=== PATIENT | female | born 1935 | race Caucasian/White ===

== ENCOUNTER 2017-01-09 11:09 | Inpatient (IN) | payer OTHER ==
[~2017-01-09] VITALS: Ht 162.6 cm; Wt 86.8 kg
[2017-01-09 12:11] LABS: BASO % 0.1 %; BASO ABS # 0.01 K/uL (0-0.2); EOS % 2.7 %; HEMATOCRIT 24.3 % (37-47); IG% 0.1 %; LYMPH % 35.6 %; MEAN CELL VOLUME 89.3 fL (80-100); MEAN CORPUSCULAR HEMOGLOBIN 27.6 pg (25-34); MEAN CORPUSCULAR HGB CONC 30.9 g/dl (32-36); MEAN PLATELET VOLUME 9.3 fL (7.4-10.4); MONO % 5.1 %; NEUT % 56.4 %; PLATELET COUNT 423 K/uL (130-400); RED BLOOD COUNT 2.72 M/uL (4.2-5.4); WHITE BLOOD COUNT 7.03 K/uL (4.8-10.8)
[2017-01-09] MEDS ORDERED: AMLO-110 PO (12:13)
[2017-01-09] MEDS ORDERED: SITA100T3 PO (12:13)
[2017-01-09] MEDS ORDERED: LISI-787 PO (12:13)
[2017-01-09] MEDS ORDERED: PIOG1TAB20 PO (12:13)
[2017-01-09] MEDS ORDERED: ERGO500037 PO (12:13)
[2017-01-09 12:24] LABS: BUN/CREATININE RATIO 17.3 (10-20); CALCIUM 9.7 mg/dl (8.5-10.1); CREATININE 1.9 mg/dl (0.60-1.20); POTASSIUM 3.5 mmol/L (3.5-5.1)
--- NOTE | 2017-01-09 13:01 | DIAGNOSTIC IMAGING REPORT ---
HEAD WITHOUT CONTRAST (CT) CLINICAL HISTORY: 81 years-old Female presenting with cva, slurred speech. TECHNIQUE: Multidetector CT imaging of the head was performed without the use of intravenous contrast. IV contrast: None. A dose lowering technique was used consistent with the principles of ALARA (as low as reasonably achievable). COMPARISON: None. CT DOSE (mGy.cm): The estimated cumulative dose is 537.48 mGy.cm. FINDINGS: Polisher Implant topogram: Unremarkable. Ventricles and sulci normal in size. Periventricular and subcortical white matter hypoattenuation, nonspecific but likely indicative of chronic small vessel ischemic change. Evidence of bilateral basal ganglia old lacunar infarcts. No mass effect or midline shift. No hemorrhage or acute territorial infarct. No extra-axial fluid collection. Paranasal sinuses and mastoid air cells clear. Calvarium intact. IMPRESSION: 1. No acute intracranial pathology. 2. Chronic small vessel ischemic change and bilateral basal ganglia old lacunar infarcts. Electronically signed by: Ignacio Read M.D. 01/09/2017 12:59 PM Dictated Date/Time: 01/09/2017 12:57 PM
[2017-01-09 13:41] LABS: COMPLETE YES; POLYCHROMASIA 1+
[2017-01-09] MEDS ORDERED: SODIUM CHLORIDE 0.9% 1000ML 1,000 ML IV STA (14:31)
[2017-01-09 14:33] VITALS: Ht 162.6 cm; Wt 86.8 kg
[2017-01-09] MEDS ORDERED: PNEUMOCOCCAL ADMINISTRATION CHARGE ONE (15:00)
[2017-01-09] MEDS ORDERED: PNEUMOCOCCAL POLYSACCHARIDES 25 MCG/0.5 ML VIAL/SYR IM. ONE (15:00)
[2017-01-09] MEDS ORDERED: RANITIDINE IV 50 MG in DEXTROSE 5% 100ML 100 ML IV SCH (15:15)
[2017-01-09] MEDS ORDERED: DEXTROSE 50% 50 ML SYR IV PRN (15:15)
[2017-01-09] MEDS ORDERED: GLUCAGON FOR INJ 1 MG VIAL SQ PRN (15:15)
[2017-01-09] MEDS ORDERED: GLUCOSE 40% GEL 15 GM TUBE PO PRN (15:15)
[2017-01-09] MEDS ORDERED: GLUCOSE 10 TABS/TUBE PO PRN (15:15)
--- NOTE | 2017-01-09 15:46 | History and Physical ---
History & Physical Date & Time of Service: Jan 09, 2017 at 15:42 Chief Complaint: Slurred Speech Primary Care Physician: No Doctor, Assigned History of Present Illness Source: patient, family (Georgiana Thomason, daughter, ) 81 year old F currently resident of [facility] and visiting in [place] when having new onset slurred speech that was witnessed by daughter Georgiana Thomason [phone] in the car with daughter reporting the episode lasted for around 30 minutes and resolved before patient arrived to the emergency room. Patient has PMH of HTN on oral antihypertensives at home and oral antihyperglycemic medications as prescribed by her doctor in [place], Dr. Canchola, , . However patient did not take her medications before arriving to the ED and was found to have blood pressure systolic above 180. Patient reports that typically she is consistent with taking her medications, but sometimes her systolic blood pressure can be over 200. She reports good diabetes control and reports her last known HbA1c to be less than 6. Patient only had a small snack in the AM before episode of slurred speech. Her glucose measured in the ED was 161 and not hypoglycemic. Head CT did not show evidence of new infarct. Patient is not likely able to get MRI of head because of history of metal hip. As per ED physician, Dr. Calderon, there guaiac positive blood on rectal exam. Patient reports that she is aware of history of anemia and has in the past been on iron supplements but not recently with last colonoscopy positive for a polyp but was unremarkable test and that she will be due for colonoscopy soon. Patient does not report of seeing blood in stool and reports weight gain. Other pertinent lab findings include creatinine of 1.8 with GFR estimated below 30 however it is unclear whether this is acute or chronic. Past Medical/Surgical History Medical Problems: (1) Anemia Status: Chronic (2) Diabetes Status: Chronic (3) Slurred speech Status: Resolved Family History Stroke MOTHER GRANDMOTHER Social History Smoking Status: Never Smoker Smokeless Tobacco Use: No Alcohol Use: none Drug Use: none Occupational Status: retired Allergies Coded Allergies: Sulfa Antibiotics (Unverified Allergy, Unknown, ., 01/09/17) Home Medications Scheduled Amlodipine (Norvasc), 5 MG PO DAILY Ergocalciferol (Vitamin D 87579 Unit), 50,000 UNIT PO WK Lisinopril/Hctz (Zestoretic 20MG/12.5MG), 1 TAB PO DAILY Pioglitazone Hcl (Pioglitazone Hcl), 45 MG PO DAILY Sitagliptin Phosphate (Januvia), 100 MG PO DAILY Review of Systems Constitutional: No fever Eyes: No worsening of vision ENT: No sore throat, No trouble swallowing Respiratory: No cough, No shortness of breath, No dyspnea at rest Cardiovascular: No chest pain, No edema, No palpitations Abdomen: No pain Genitourinary - Female: No dysuria Neurologic: No memory loss, No paralysis, No numbness/tingling, No vertigo Psychiatric: No substance abuse Endocrine: No fatigue Hematologic / Lymphatic: No abnormal bleeding/bruising Integumentary: No rash Physical Exam Vital Signs Date Time Temp Pulse Resp B/P (MAP) Pulse Ox O2 Delivery O2 Flow Rate FiO2 01/09/17 14:45 81 16 169/66 96 Room Air 01/09/17 14:33 Room Air 01/09/17 13:34 110 01/09/17 12:58 78 15 180/68 98 Room Air 01/09/17 11:36 89 16 184/97 98 Room Air 01/09/17 11:11 36.7 92 16 177/76 98 Room Air General Appearance: no apparent distress, + obese Head: normocephalic, atraumatic Eyes: normal inspection, PERRL, EOMI, sclerae normal ENT: pharynx normal Neck: supple, thyroid normal, no JVD, no carotid bruits, trachea midline Respiratory/Chest: chest non-tender, lungs clear, normal breath sounds, no respiratory distress, no accessory muscle use Cardiovascular: no JVD, no murmur, + tachycardia (100 bpm) Abdomen/GI: normal bowel sounds, non tender, soft Back: normal inspection, no muscle spasm Extremities/Musculoskelatal: normal inspection, no calf tenderness, no pedal edema, normal range of motion Neurologic/Psych: no motor/sensory deficits, alert, oriented x 3 Diagnostics Laboratory Results Results Past 24 Hours Test 01/09/17 11:30 01/09/17 11:37 01/09/17 11:52 01/09/17 15:13 Range/Units White Blood Count 7.03 4.8-10.8 K/uL Red Blood Count 2.72 4.2-5.4 M/uL Hemoglobin 7.5 12.0-16.0 g/dL Hematocrit 24.3 37-47 % Mean Corpuscular Volume 89.3 80-100 fL Mean Corpuscular Hemoglobin 27.6 25-34 pg Mean Corpuscular Hemoglobin Concent 30.9 32-36 g/dl Platelet Count 423 130-400 K/uL Mean Platelet Volume 9.3 7.4-10.4 fL Neutrophils (%) (Auto) 56.4 % Lymphocytes (%) (Auto) 35.6 % Monocytes (%) (Auto) 5.1 % Eosinophils (%) (Auto) 2.7 % Basophils (%) (Auto) 0.1 % Neutrophils # (Auto) 3.96 1.4-6.5 K/uL Lymphocytes # (Auto) 2.50 1.2-3.4 K/uL Monocytes # (Auto) 0.36 0.11-0.59 K/uL Eosinophils # (Auto) 0.19 0-0.5 K/uL Basophils # (Auto) 0.01 0-0.2 K/uL RDW Standard Deviation 53.8 36.4-46.3 fL RDW Coefficient of Variation 16.4 11.5-14.5 % Immature Granulocyte % (Auto) 0.1 % Immature Granulocyte # (Auto) 0.01 0.00-0.02 K/uL Polychromasia 1+ Sodium Level 141 136-145 mmol/L Potassium Level 3.5 3.5-5.1 mmol/L Chloride Level 106 98-107 mmol/L Carbon Dioxide Level 27 21-32 mmol/L Anion Gap 8.0 3-11 mmol/L Blood Urea Nitrogen 33 7-18 mg/dl Creatinine 1.90 0.60-1.20 mg/dl Est Creatinine Clear Calc Drug Dose 26.0 ml/min Estimated GFR () 28.6 Estimated GFR (Non- 24.6 BUN/Creatinine Ratio 17.3 10-20 Random Glucose 158 70-99 mg/dl Calcium Level 9.7 8.5-10.1 mg/dl Total Bilirubin 0.3 0.2-1 mg/dl Aspartate Amino Transf (AST/SGOT) 9 15-37 U/L Alanine Aminotransferase (ALT/SGPT) 13 12-78 U/L Alkaline Phosphatase 80 45-117 U/L Total Protein 7.5 6.4-8.2 gm/dl Albumin 3.7 3.4-5.0 gm/dl Globulin 3.8 2.5-4.0 gm/dl Albumin/Globulin Ratio 1.0 0.9-2 Bedside Prothrombin Time INR 1.1 0.9-1.1 Bedside Glucose 161 70-90 mg/dl Diagnostic Radiology HEAD WITHOUT CONTRAST (CT) FINDINGS: Citrix Consultant topogram: Unremarkable. Ventricles and sulci normal in size. Periventricular and subcortical white matter hypoattenuation, nonspecific but likely indicative of chronic small vessel ischemic change. Evidence of bilateral basal ganglia old lacunar infarcts. No mass effect or midline shift. No hemorrhage or acute territorial infarct. No extra-axial fluid collection. Paranasal sinuses and mastoid air cells clear. Calvarium intact. IMPRESSION: 1. No acute intracranial pathology. 2. Chronic small vessel ischemic change and bilateral basal ganglia old lacunar EKG 77 beats per minute in normal sinus rhythm No prior EKG available Impression Assessment and Plan 81 year old F currently resident of [facility] and visiting in [place] when having new onset slurred speech that was witnessed by daughter Georgiana Thomason [phone] in the car with daughter reporting the episode lasted for around 30 minutes and resolved before patient arrived to the emergency room. CT head negative for acute pathology but patient may have had a transient ischemic attack and was found to be have elevated blood pressure with systolic BP above 180. Also seen to be tachycardic between 100 to 105 beats per minute and concern for arrhythmia. ED evaluation also concerning for whether patient has GI bleed. Admit to telemetry for cardiac and neurological monitoring and trend CBC. Also for trending renal function and obtain medical records from her primary care doctor in [place] Dr. Canchola to see whether above mentioned lab abnormalities are acute or chronic. Slurred speech -TIA vs Hypertensive Emergency vs Arrhythmia vs Hypoglycemia -cardiac monitoring on telemetry, neuro checks, fingerstick glucose, blood pressure control with antihypertensives (restart home blood pressure medications ) -carotid doppler, 2D echo -patient out of window period for TPA, aspirin 324 mg ordered x 1 to prevent stroke recurrence Diabetes -hold oral antihyperglycemics for now -start aspart insulin as per fingerstick glucose levels -check HbA1c Anemia -ordered, iron studies, and retic count -positive guaiac as per ED admission, will start pantoprazole IV in case of true GI bleed -stop pantoprazole if CBC remains stable -SCD sleeves for now for DVT prophylaxis FERNANDO vs CKD -monitor renal labs -send urinalysis Obtain medical records -doctor in [place], Dr. Canchola, , Level of Care Telemetry Advanced Directives Existing Living Will: Yes Existing Power of Criminal Investigator: No Resuscitation Status FULL RESUSCITATION VTE Prophylaxis VTE Risk Assessment Done? Y/N: Yes Risk Level: Moderate Given or contraindicated: SCD's
[2017-01-09] MEDS ORDERED: ASPIRIN 81 MG CHEW PO STA (15:51)
[2017-01-09 15:57] LABS: MAGNESIUM 2.2 mg/dl (1.8-2.4)
[2017-01-09 16:00] VITALS: BP 172/76; PULSE 82; TEMP 36.8; O2SAT 95
[2017-01-09] MEDS ORDERED: RANITIDINE IV 50 MG in DEXTROSE 5% 100ML 100 ML IV ONE (16:30)
--- NOTE | 2017-01-09 17:17 | EMERGENCY ROOM VISIT NOTE ---
History Report prepared by Scribe: Minor Arita Under the Supervision of: Dr. Marshall Calderon D.O. First contact with patient: 11:52 Chief Complaint: STROKE SYMPTOMS Stated Complaint: SLURRED SPEECH History of Present Illness The patient is a 81 year old female who presents to the Emergency Room with complaints of resolved slurred speech beginning shortly prior to arrival. The patient has a lisp at baseline. Per daughter, the patient's speech sounds a little off, but sounds significantly better than before. The patient states that she was driving in a car when she suddenly began slurring her speech. Her daughter states "she just sounded drunk". She states that the patient's speech slur improved en route to the hospital, and was resolved upon arrival. The patient denies any chest pain, visual changes, SOB, nausea, vomiting, weakness, fatigue, or diarrhea. She notes that she has been anemic recently, and has been taking iron. She has a history of diabetes. The patient states that she felt a "slight tremor" throughout her face while her symptoms were present. She is not on any blood thinners. Source of History: patient, family (daughter) Onset: Shortly prior to arrival Quality: other (speech slur) Timing: resolved Associated Symptoms: No chest pain, No SOB, No nausea, No vomiting, No diarrhea, No fatigue, No weakness Note: Additional symptoms: a "slight tremor" throughout her face while her symptoms were present. Review of Systems See HPI for pertinent positives & negatives. A total of 10 systems reviewed and were otherwise negative. Past Medical & Surgical Medical Problems: (1) Anemia (2) Diabetes (3) Slurred speech Family History No pertinent family history stated. Social History Smoking Status: Never Smoker Occupation Status: retired Current/Historical Medications Scheduled Amlodipine (Norvasc), 5 MG PO DAILY Ergocalciferol (Vitamin D 60287 Unit), 50,000 UNIT PO WK Lisinopril/Hctz (Zestoretic 20MG/12.5MG), 1 TAB PO DAILY Pioglitazone Hcl (Pioglitazone Hcl), 45 MG PO DAILY Sitagliptin Phosphate (Januvia), 100 MG PO DAILY Allergies Coded Allergies: Sulfa Antibiotics (Unverified Allergy, Unknown, ., 01/09/17) Physical Exam Vital Signs Date Time Temp Pulse Resp B/P (MAP) Pulse Ox O2 Delivery O2 Flow Rate FiO2 01/09/17 14:45 81 16 169/66 96 Room Air 01/09/17 14:33 Room Air 01/09/17 13:34 110 01/09/17 12:58 78 15 180/68 98 Room Air 01/09/17 11:36 89 16 184/97 98 Room Air 01/09/17 11:11 36.7 92 16 177/76 98 Room Air Physical Exam GENERAL: Sitting up in bed, alert, well appearing, well nourished, no distress, non-toxic EYE EXAM: normal conjunctiva, PERRL and EOM's intact OROPHARYNX: no exudate, no erythema, lips, buccal mucosa, and tongue normal and mucous membranes are moist NECK: supple, no nuchal rigidity, no adenopathy, non-tender LUNGS: Clear to auscultation. Normal chest wall mechanics HEART: no murmurs, S1 normal and S2 normal ABDOMEN: abdomen soft, non-tender, normo-active bowel sounds, no masses, no rebound or guarding. BACK: Back is symmetrical on inspection and there is no deformity, no midline tenderness, no CVA tenderness. SKIN: no rashes and no bruising UPPER EXTREMITIES: upper extremities are grossly normal. LOWER EXTREMITIES: No pitting edema. NEURO EXAM: Normal sensorium, cranial nerves II-XII intact, slurred speech (at baseline per family), no weakness of arms, no weakness of legs. No drift. Finger to nose intact. Gross sensation intact. RECTAL: Heme positive Medical Decision & Procedures ER Provider Diagnostic Interpretation: CT:Per my review, radiologist interpretation. HEAD WITHOUT CONTRAST (CT) FINDINGS: Meat Cutter Apprentice topogram: Unremarkable. Ventricles and sulci normal in size. Periventricular and subcortical white matter hypoattenuation, nonspecific but likely indicative of chronic small vessel ischemic change. Evidence of bilateral basal ganglia old lacunar infarcts. No mass effect or midline shift. No hemorrhage or acute territorial infarct. No extra-axial fluid collection. Paranasal sinuses and mastoid air cells clear. Calvarium intact. IMPRESSION: 1. No acute intracranial pathology. 2. Chronic small vessel ischemic change and bilateral basal ganglia old lacunar infarcts. Electronically signed by: Ignacio Read M.D. Laboratory Results 01/09/17 11:30 Red Blood Count 2.72, Mean Corpuscular Volume 89.3, Mean Corpuscular Hemoglobin 27.6, Mean Corpuscular Hemoglobin Concent 30.9, Mean Platelet Volume 9.3, Neutrophils (%) (Auto) 56.4, Lymphocytes (%) (Auto) 35.6, Monocytes (%) (Auto) 5.1, Eosinophils (%) (Auto) 2.7, Basophils (%) (Auto) 0.1, Neutrophils # (Auto) 3.96, Lymphocytes # (Auto) 2.50, Monocytes # (Auto) 0.36, Eosinophils # (Auto) 0.19, Basophils # (Auto) 0.01 01/09/17 11:30 Test 01/09/17 11:30 01/09/17 11:37 White Blood Count 7.03 K/uL (4.8-10.8) Red Blood Count 2.72 M/uL (4.2-5.4) Hemoglobin 7.5 g/dL (12.0-16.0) Hematocrit 24.3 % (37-47) Mean Corpuscular Volume 89.3 fL (80-100) Mean Corpuscular Hemoglobin 27.6 pg (25-34) Mean Corpuscular Hemoglobin Concent 30.9 g/dl (32-36) Platelet Count 423 K/uL (130-400) Mean Platelet Volume 9.3 fL (7.4-10.4) Neutrophils (%) (Auto) 56.4 % Lymphocytes (%) (Auto) 35.6 % Monocytes (%) (Auto) 5.1 % Eosinophils (%) (Auto) 2.7 % Basophils (%) (Auto) 0.1 % Neutrophils # (Auto) 3.96 K/uL (1.4-6.5) Lymphocytes # (Auto) 2.50 K/uL (1.2-3.4) Monocytes # (Auto) 0.36 K/uL (0.11-0.59) Eosinophils # (Auto) 0.19 K/uL (0-0.5) Basophils # (Auto) 0.01 K/uL (0-0.2) RDW Standard Deviation 53.8 fL (36.4-46.3) RDW Coefficient of Variation 16.4 % (11.5-14.5) Immature Granulocyte % (Auto) 0.1 % Immature Granulocyte # (Auto) 0.01 K/uL (0.00-0.02) Nucleated RBC Absolute Count (auto) 0.00 K/uL (0-0) Nucleated Red Blood Cells % 0.0 % Polychromasia 1+ Absolute Reticulocyte Count 0.06 10^6/uL (0.02-0.10) Percent Reticulocyte Count 2.1 % (0.5-2.0) Anion Gap 8.0 mmol/L (3-11) Est Creatinine Clear Calc Drug Dose 26.0 ml/min Estimated GFR () 28.6 Estimated GFR (Non- 24.6 BUN/Creatinine Ratio 17.3 (10-20) Calcium Level 9.7 mg/dl (8.5-10.1) Magnesium Level 2.2 mg/dl (1.8-2.4) Iron Level 25 mcg/dl (35-150) Total Iron Binding Capacity 387 mcg/dl (250-450) Total Bilirubin 0.3 mg/dl (0.2-1) Aspartate Amino Transf (AST/SGOT) 9 U/L (15-37) Alanine Aminotransferase (ALT/SGPT) 13 U/L (12-78) Alkaline Phosphatase 80 U/L (45-117) Total Protein 7.5 gm/dl (6.4-8.2) Albumin 3.7 gm/dl (3.4-5.0) Globulin 3.8 gm/dl (2.5-4.0) Albumin/Globulin Ratio 1.0 (0.9-2) Bedside Prothrombin Time INR 1.1 (0.9-1.1) Laboratory results per my review. Medications Administered Medications (Trade) Dose Ordered Sig/Ariella Route Start Time Stop Time Status Last Admin Dose Admin Sodium Chloride 1,000 ml @ 999 mls/hr Q1H1M STAT IV 01/09/17 14:31 01/09/17 15:31 DC 01/09/17 14:45 999 MLS/HR ECG Indication: other (neurologic symptoms) Rate (beats per minute): 77 Rhythm: sinus rhythm Findings: Q waves (Inferior), no ectopy ED Course ED COURSE: Vital signs were reviewed and showed hypertension The patients medical record was reviewed The above diagnostic studies were performed and reviewed. ED treatments and interventions as stated above. 1157: The patient was evaluated in room A9B. A complete history and physical examination was performed. 1345: Upon reevaluation, the patient is resting comfortably. I discussed my findings with the patient and she understands and agrees with the treatment plan. Based on the patients age, coexisting illnesses, exam and lab findings the decision to treat as an inpatient was made. The patient remained stable while under my care. The patient will be evaluated for further management. Medical Decision Differential Diagnosis includes but is not limited to ischemic Stroke, hemorrhagic stroke, bells palsy, mass, neoplasm, migraine headache, seizure, subarachnoid hemorrhage, TIA, and transient global amnesia. Patient is a 81-year-old female who presents the ER following sudden onset of slurred speech. This resolved prior to arrival. On exam she completely neurologically intact with exception of mild slurred speech which family and patient note is baseline for her. She is a history of anemia with a previous transfusion but is unaware of her typical hemoglobin. Hematoma today 7.5 with heme positive stool. BMP shows a creatinine of 1.9. CT head was unremarkable. Patient was updated regards to findings and she is admitted to internal medicine for TIA along with anemia and GI bleed. Medication Reconcilliation Current Medication List: was personally reviewed by me Blood Pressure Screening Patient's blood pressure: Elevated blood pressure Blood pressure disposition: Referred to PCP Consults Time Called: 1332 Consulting Physician: Dr. Nate Gilmore Returned Call: 134 I reviewed the patient's case with Dr. Sullivan. Nazario will evaluate the patient for further management. Impression Primary Impression: TIA (transient ischemic attack) Additional Impressions: Symptomatic anemia Slurred speech Anemia Scribe Attestation The scribe's documentation has been prepared under my direction and personally reviewed by me in its entirety. I confirm that the note above accurately reflects all work, treatment, procedures, and medical decision making performed by me. Departure Information Dispostion Being Evaluated By Hospitalist Patient Instructions My [facility] Problem Qualifiers Primary Impression: TIA (transient ischemic attack) Transient cerebral ischemia type: unspecified Qualified Codes: G45.9 - Transient cerebral ischemic attack, unspecified Additional Impressions: Anemia Anemia type: unspecified type Qualified Codes: D64.9 - Anemia, unspecified
[2017-01-09 17:20] VITALS: BP 157/64; PULSE 76
[2017-01-09 18:22] LABS: HEMATOCRIT 24.4 % (37-47); MEAN CELL VOLUME 90.7 fL (80-100); MEAN CORPUSCULAR HGB CONC 28.7 g/dl (32-36); MEAN PLATELET VOLUME 8.9 fL (7.4-10.4); PLATELET COUNT 358 K/uL (130-400); RED BLOOD COUNT 2.69 M/uL (4.2-5.4); WHITE BLOOD COUNT 6.29 K/uL (4.8-10.8)
--- NOTE | 2017-01-09 20:11 | DIAGNOSTIC IMAGING REPORT ---
CAROTID ARTERY ULTRASOUND CLINICAL HISTORY: Slurred speech. COMPARISON STUDY: None. TECHNIQUE: Real-time, grayscale, and color Doppler sonography of the carotid and vertebral arteries was performed. Images were viewed in the transverse and longitudinal planes. FINDINGS: There is mild to moderate atherosclerotic plaque. Velocity measurements are listed below. COMMON CAROTID PEAK SYSTOLIC VELOCITY (CM/S): RIGHT 118 LEFT 111 ICA PEAK SYSTOLIC VELOCITY (CM/S): RIGHT 87 LEFT 109 The systolic ratios between the internal to common carotid arteries are normal. Antegrade flow is seen in the vertebral arteries. The external carotid arteries are patent. Blood pressure in the right arm measured 170/73. Blood pressure in the left arm measured 161/77. IMPRESSION: 1. No evidence of a hemodynamically significant stenosis. 2. Elevated blood pressure, as above. Electronically signed by: Jameel Hanson M.D. 01/09/2017 8:09 PM Dictated Date/Time: 01/09/2017 8:08 PM
[2017-01-09 20:48] VITALS: BP 161/67; PULSE 78; TEMP 36.7; O2SAT 93
[2017-01-09] MEDS: INSULIN ASPART 100 UNITS/ML 3 ML PEN SC SCH (21:00)
[2017-01-09 23:43] VITALS: BP 134/75; PULSE 87; TEMP 36.7; O2SAT 95
[2017-01-10] VITALS (20 sets, daily range): BP systolic 142–183; BP diastolic 70–96; PULSE 67–89; TEMP 36.5–36.9; O2SAT 90–98
[2017-01-10 00:43] LABS: HEMATOCRIT 21.9 % (37-47)
[2017-01-10] MEDS: INSULIN ASPART 100 UNITS/ML 3 ML PEN SC SCH ×4 (06:30→20:11)
--- NOTE | 2017-01-10 08:05 | DIAGNOSTIC IMAGING REPORT ---
HEAD CT NONCONTRAST CT DOSE: 537.48 mGy.cm HISTORY: Increased weakness right leg, right facial droop, slurred speech TECHNIQUE: Multiaxial CT images of the head were performed without the use of intravenous contrast. Automated exposure control was utilized for this study. A dose lowering technique was utilized adhering to the principles of ALARA. Comparison: Head CT 01/09/2017. Findings: The paranasal sinuses and mastoid air cells are clear. The calvarium and skull base are intact. There is no mass, hematoma, midline shift, acute infarct. White matter hypodensity is nonspecific but suggestive of moderate microvascular ischemic change. The ventricles and sulci demonstrate mild age-related involutional changes. Old bilateral basal ganglia and thalamic lacunar infarcts are again noted. Impression: No significant change compared to the prior study. No acute intracranial abnormality. Electronically signed by: Ulices Alonzo M.D. 01/10/2017 8:03 AM Dictated Date/Time: 01/10/2017 7:48 AM
[2017-01-10] MEDS ORDERED: ALTEPLASE, RECOMBINANT INJ 7.8 MG in SYRINGE 0 ML IV SCH (08:29)
[2017-01-10] MEDS ORDERED: ALTEPLASE IV SCH (08:30)
[2017-01-10] MEDS ORDERED: SET 2260-0500 IV ONE (08:30)
[2017-01-10] MEDS ORDERED: CLOPIDOGREL BISULFATE 75 MG TAB PO ONE (08:30)
[2017-01-10] MEDS ORDERED: RECOMBINANT IV SCH (08:30)
[2017-01-10] MEDS ORDERED: PANTOprazole INJ 80 MG in DEXTROSE 5% 100ML IV SCH (08:30)
--- NOTE | 2017-01-10 08:36 | Clinical Documentation Query ---
CLINICAL DOCUMENTATION QUERY 81 year old female who presents to the Emergency Room with complaints of resolved slurred speech Query #1/2 In your clinical opinion is this patient being managed for: ( ) GI bleed evidenced by +rectal exam and anemia treated with PRBC's, GI consult, and IV protonix. ( ) Not Agree ( ) Other explanation of clinical findings (Please Explain) Possible GI bleed evidenced by +rectal exam and anemia treated with PRBC's, GI consult, and IV protonix. ( ) Unable to determine (Please Define) ( ) Need to Discuss The medical record reflects the following clinical findings, treatment, and risk factors. Clinical Indicators: Worsening anemia, Hgb 6.7, Hct 21.9, + guaiac on ED rectal exam. Treatment: 2 units of PRBC's, IV Protonix gtt, FOCB, GI consult Risk Factors: Age, +rectal guaiac on rectal exam, worsening anemia. Query #2/2 In your clinical opinion is this patient being managed for: (X ) Acute blood loss anemia in setting of suspected GI bleed treated with 2 units of PRBC's ( ) Not Agree ( ) Other explanation of clinical findings (Please Explain) ( ) Unable to determine (Please Define) ( ) Need to Discuss The medical record reflects the following clinical findings, treatment, and risk factors. Clinical Indicators: Worsening anemia, Hgb 6.7, Hct 21.9 Treatment: 2 units of PRBC's Risk Factors: Age, ?GIB, Please clarify and document your clinical opinion in the progress notes and discharge summary. Terms such as "probable", "suspected", "likely", "questionable", "possible", or "still to be ruled out" are acceptable. IF IN AGREEMENT, YOU MUST DOCUMENT ABOVE DIAGNOSTIC STATEMENT IN DAILY PROGRESS NOTES AND DISCHARGE SUMMARY. This document is not part of the patient's record. Thank You, Guanakito Mejia, GUY [phone]
[2017-01-10 08:42] LABS: PARTIAL THROMBOPLASTIN RATIO 0.9; PROTHROMBIN TIME (PATIENT) 10.9 SECONDS (9.0-12.0)
[2017-01-10] MEDS ORDERED: ATORVASTATIN 40 MG TAB PO ONE (08:44)
[2017-01-10 08:45] LABS: ESTIMATED AVERAGE GLUCOSE 140 mg/dl; HA1C FLAG Normal (Normal)
[2017-01-10] MEDS ORDERED: PHARMACIST DISCHARGE MED REC CONSULT PRN (08:45)
[2017-01-10] MEDS ORDERED: PANTOprazole INJ 40 MG in DEXTROSE 5% 100ML IV SCH (08:45)
[2017-01-10] MEDS ORDERED: LABETALOL HCL IV 5 MG/ML 20ML IV PRN (08:45)
[2017-01-10 08:55] LABS: BUN/CREATININE RATIO 16.3 (10-20); CALCIUM 9.9 mg/dl (8.5-10.1); CREATININE 1.2 mg/dl (0.60-1.20); PHOSPHORUS 2.8 mg/dl (2.5-4.9); POTASSIUM 3.4 mmol/L (3.5-5.1)
[2017-01-10] MEDS ORDERED: LISINOPRIL/HCTZ 20/12.5MG TAB PO SCH (09:00)
[2017-01-10] MEDS ORDERED: ATORVASTATIN 40 MG TAB PO SCH (09:00)
[2017-01-10] MEDS ORDERED: ASPIRIN 81 MG ECTAB PO SCH (09:00)
[2017-01-10] MEDS ORDERED: D5W AND NSS 1,000 ML IV SCH (09:00)
[2017-01-10] MEDS ORDERED: RANITIDINE IV 50 MG in DEXTROSE 5% 100ML 100 ML IV SCH (09:00)
[2017-01-10] MEDS ORDERED: AMLODIPINE BESYLATE 5 MG TAB PO SCH (09:00)
[2017-01-10 09:02] LABS: BASO % 0.2 %; BASO ABS # 0.01 K/uL (0-0.2); COMPLETE YES; EOS % 3.2 %; HEMATOCRIT 31.5 % (37-47); IG% 0.3 %; LYMPH ABS # 1.56 K/uL (1.2-3.4); MEAN CELL VOLUME 90.8 fL (80-100); MEAN CORPUSCULAR HGB CONC 30.8 g/dl (32-36); MEAN PLATELET VOLUME 8.9 fL (7.4-10.4); MONO % 5.5 %; NEUT % 64.8 %; PLATELET COUNT 356 K/uL (130-400); RED BLOOD COUNT 3.47 M/uL (4.2-5.4)
[2017-01-10] MEDS ORDERED: POTASSIUM CHLORIDE 20 MEQ/15 ML UDC PO ONE (09:15)
--- NOTE | 2017-01-10 09:29 | Progress Note ---
Medicine Progress Note Date & Time of Visit: Jan 10, 2017 at 09:02. 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 and basal ganglia, chronic small vessel ischemic change reassessed patient while in ICU, feels the same, no changes in symptoms denies chest pain, dyspnea, palpitations, dizziness, nausea/vomiting no other symptoms Objective Last 8 Hrs Date Time Temp Pulse Resp B/P (MAP) Pulse Ox O2 Delivery O2 Flow Rate FiO2 01/10/17 07:55 Room Air 01/10/17 07:35 76 18 183/91 (121) 96 Room Air 01/10/17 07:25 68 18 180/84 (116) 97 Room Air 01/10/17 07:02 36.9 69 18 161/82 (108) 93 Room Air 01/10/17 06:00 36.7 88 16 143/76 92 01/10/17 05:30 36.9 67 16 144/96 94 01/10/17 05:00 36.9 72 18 166/84 96 01/10/17 04:45 36.8 76 18 157/81 94 01/10/17 04:28 36.7 85 20 161/83 97 01/10/17 04:00 Room Air 01/10/17 03:35 36.7 80 18 149/70 90 01/10/17 03:05 36.9 80 18 148/76 91 01/10/17 02:35 36.6 80 16 146/78 91 01/10/17 02:20 36.8 77 18 158/76 94 01/10/17 02:05 36.8 87 20 164/78 94 Physical Exam: General- oriented x 3, not in distress, speaks in sentences with no effort Head- atraumatic Eyes- PERRL, EOMI, anicteric ENT- oropharynx clear Neck- supple, no JVD, no adenopathy, no thyromegaly Lungs- clear to auscultation bl Heart- regular rhythm; no murmur, normal rate Abdomen- normal bowel sounds, soft, nontender Extremities- no pretibial edema, no calf tenderness Neuro- alert, oriented x 3; PERRL, EOMI;(+) mild dysartrhia, and right facial droop- mild otherwise CN2-12 grossly intact; motor 5/5 bilaterally; sensation 100% on all ext, finger to nose intact bilaterally Skin- warm & dry Laboratory Results: Last 24 Hours Test 01/09/17 11:30 01/09/17 11:37 01/09/17 11:52 01/09/17 16:08 White Blood Count 7.03 K/uL Red Blood Count 2.72 M/uL Hemoglobin 7.5 g/dL Hematocrit 24.3 % Mean Corpuscular Volume 89.3 fL Mean Corpuscular Hemoglobin 27.6 pg Mean Corpuscular Hemoglobin Concent 30.9 g/dl Platelet Count 423 K/uL Mean Platelet Volume 9.3 fL Neutrophils (%) (Auto) 56.4 % Lymphocytes (%) (Auto) 35.6 % Monocytes (%) (Auto) 5.1 % Eosinophils (%) (Auto) 2.7 % Basophils (%) (Auto) 0.1 % Neutrophils # (Auto) 3.96 K/uL Lymphocytes # (Auto) 2.50 K/uL Monocytes # (Auto) 0.36 K/uL Eosinophils # (Auto) 0.19 K/uL Basophils # (Auto) 0.01 K/uL RDW Standard Deviation 53.8 fL RDW Coefficient of Variation 16.4 % Immature Granulocyte % (Auto) 0.1 % Immature Granulocyte # (Auto) 0.01 K/uL Nucleated RBC Absolute Count (auto) 0.00 K/uL Nucleated Red Blood Cells % 0.0 % Polychromasia 1+ Absolute Reticulocyte Count 0.06 10^6/uL Percent Reticulocyte Count 2.1 % Sodium Level 141 mmol/L Potassium Level 3.5 mmol/L Chloride Level 106 mmol/L Carbon Dioxide Level 27 mmol/L Anion Gap 8.0 mmol/L Blood Urea Nitrogen 33 mg/dl Creatinine 1.90 mg/dl Est Creatinine Clear Calc Drug Dose 26.0 ml/min Estimated GFR () 28.6 Estimated GFR (Non- 24.6 BUN/Creatinine Ratio 17.3 Random Glucose 158 mg/dl Calcium Level 9.7 mg/dl Magnesium Level 2.2 mg/dl Iron Level 25 mcg/dl Total Iron Binding Capacity 387 mcg/dl Total Bilirubin 0.3 mg/dl Aspartate Amino Transf (AST/SGOT) 9 U/L Alanine Aminotransferase (ALT/SGPT) 13 U/L Alkaline Phosphatase 80 U/L Total Protein 7.5 gm/dl Albumin 3.7 gm/dl Globulin 3.8 gm/dl Albumin/Globulin Ratio 1.0 Bedside Prothrombin Time INR 1.1 Bedside Glucose 161 mg/dl 114 mg/dl Test 01/09/17 17:59 01/09/17 21:12 01/10/17 00:13 01/10/17 07:33 White Blood Count 6.29 K/uL Red Blood Count 2.69 M/uL Hemoglobin 7.0 g/dL 6.7 g/dL Hematocrit 24.4 % 21.9 % Mean Corpuscular Volume 90.7 fL Mean Corpuscular Hemoglobin 26.0 pg Mean Corpuscular Hemoglobin Concent 28.7 g/dl RDW Standard Deviation 54.1 fL RDW Coefficient of Variation 16.5 % Platelet Count 358 K/uL Mean Platelet Volume 8.9 fL Bedside Glucose 104 mg/dl 128 mg/dl Test 01/10/17 08:14 01/10/17 08:22 Bedside Glucose 131 mg/dl Prothrombin Time 10.9 SECONDS Prothromb Time International Ratio 1.0 Activated Partial Thromboplast Time 22.7 SECONDS Partial Thromboplastin Ratio 0.9 Sodium Level 141 mmol/L Potassium Level 3.4 mmol/L Chloride Level 105 mmol/L Carbon Dioxide Level 28 mmol/L Anion Gap 8.0 mmol/L Blood Urea Nitrogen 20 mg/dl Creatinine 1.20 mg/dl Est Creatinine Clear Calc Drug Dose 40.7 ml/min Estimated GFR () 49.8 Estimated GFR (Non- 43.0 BUN/Creatinine Ratio 16.3 Random Glucose 141 mg/dl Estimated Average Glucose 140 mg/dl Hemoglobin A1c 6.5 % Calcium Level 9.9 mg/dl Phosphorus Level 2.8 mg/dl Magnesium Level 2.0 mg/dl Total Bilirubin 1.1 mg/dl Direct Bilirubin 0.3 mg/dl Aspartate Amino Transf (AST/SGOT) 15 U/L Alanine Aminotransferase (ALT/SGPT) 13 U/L Alkaline Phosphatase 84 U/L Total Protein 7.5 gm/dl Albumin 3.7 gm/dl Assessment & Plan 81 year old F currently resident of [facility] and visiting in [place] when having new onset slurred speech that was witnessed by daughter Georgiana Thomason [phone] in the car with daughter reporting the episode lasted for around 30 minutes and resolved before patient arrived to the emergency room. History of DM, HTN, Chronic Iron Deficiency Anemia, Colonic Polyp and as per daughter, irregular heartbeat. POSSIBLE TIA EPISODES VS. ACUTE CVA - risk factors: DM, HTN, possible history of a fib old records from PCP in [place] being confirmed - repeat CT head: no acute CVA, old lacunar infarcts, chronic small vessel ischemic changes - telestroke conference with [facility] - Dr. Edwards performed due to mild symptoms- dysarthria and facial droop in the setting of Anemia secondary to possible GI bleed, requiring 2 units pRBC transfusion, TPA NOT recommended at this time - Dr. Edwards recommends CONTINUE aspirin and ADD plavix for now and closely watch for signs of GI bleed check Brain MRI and MRA keep BP systolic 150-170, PRN Labetalol for systolic BP > 170 (hold Amlodipine and Lisinopril/HCTZ for now) - monitor in Tele, echo ordered stroke protocol order set ordered Neuro consulted Possible GI bleed - evidenced by +rectal exam and anemia treated with PRBC's, GI consult, and IV Famotidine - has history of chronic iron deficiency anemia per daughter (records being obtained from PCP in [place]) - positive guaiac in the ER - s/p 2 units pRBC, Hg improved from 6.7 to 9.7 Famotidine IV BID for now (per neuro, no protonix while on plavix) will keep NPO for now except meds, gentle IV fluids GI consulted -- Iron level 25 will need Iron supplement check vit b12 and folate Possible Acute blood loss anemia, Iron Deficiency - in setting of suspected GI bleed - treated with 2 units of PRBC's management as noted above 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 UD PRN PO 01/09/17 15:15 02/08/17 15:14 Glucose (Glucose Chew Tab) 4-8 Tablets 4 Tabl... UD PRN PO 01/09/17 15:15 02/08/17 15:14 Dextrose (Dextrose 50% 50ML Syringe) 25-50ML OF 50% DW IV FOR... UD PRN IV 01/09/17 15:15 02/08/17 15:14 Glucagon (Glucagon Inj) 1 mg UD PRN SQ 01/09/17 15:15 02/08/17 15:14 Insulin Aspart (novoLOG ASPART) SLIDING SCALE If C... ACHS SC 01/09/17 21:00 02/08/17 20:59 Alteplase, Recombinant 70.2 mg/Empty Bag 70.2 ml @ 70.2 mls/hr TODAY@0830 IV 01/10/17 08:30 01/10/17 09:29 Clopidogrel Bisulfate (plAVix TAB) 75 mg NOW ONCE PO 01/10/17 08:30 01/10/17 08:31 UNV Famotidine 20 mg/ Dextrose 102 ml @ 200 mls/hr Q12H IV 01/10/17 10:00 02/09/17 09:59 Labetalol HCl (Normodyne IV) 10 mg Q6H PRN IV 01/10/17 08:45 02/09/17 08:44 Clopidogrel Bisulfate (plAVix TAB) 75 mg QAM PO 01/10/17 09:00 02/09/17 08:59 UNV Aspirin (Ecotrin Tab) 81 mg QAM PO 01/10/17 09:00 02/09/17 08:59 Aspirin (Ecotrin Tab) 81 mg 1500 ONCE PO 01/10/17 15:00 01/10/17 15:01 Atorvastatin Calcium (Lipitor Tab) 40 mg QAM PO 01/10/17 09:00 02/09/17 08:59 Miscellaneous Information (Pharmacist Discharge Med Rec Consult) 1 ea UD PRN N/A 01/10/17 08:45 02/09/17 08:44 Dextrose/Sodium Chloride 1,000 ml @ 50 mls/hr Q20H IV 01/10/17 09:00 02/09/17 08:59
--- NOTE | 2017-01-10 10:06 | DIAGNOSTIC IMAGING REPORT ---
Brain MRA HISTORY: Stroke - Attention to [place] [facility] [place] TECHNIQUE: 3-D [id number] MRA of the brain was performed without contrast. COMPARISON STUDY: None. FINDINGS: Visualized intracranial internal carotid arteries, distal vertebral arteries, and basilar artery are widely patent. There is no significant stenosis, occlusion, or aneurysm seen within the bilateral ACAs and MCAs. Mild to moderate multifocal narrowing within the bilateral chief medical officer. IMPRESSION: Mild to moderate multifocal narrowing within the bilateral chief medical officer. Otherwise, no significant stenosis, occlusion, or aneurysm within the [place] [facility] [place]. Electronically signed by: Ulices Alonzo M.D. 01/10/2017 10:04 AM Dictated Date/Time: 01/10/2017 9:59 AM
--- NOTE | 2017-01-10 10:07 | DIAGNOSTIC IMAGING REPORT ---
BRAIN WITHOUT CONTRAST CLINICAL HISTORY: 81 years-old Female presenting with Stroke, anemia, slurred speech. TECHNIQUE: Multisequence, multiplanar MR imaging of the brain was performed without the use of intravenous contrast. IV contrast: None. COMPARISON: Noncontrast CT head performed the previous day. FINDINGS: Small focus of restricted diffusion in the subcortical white matter of the posterior left frontal region. Extensive periventricular and white matter T2/FLAIR hyperintensity nonspecific but likely chronic small vessel ischemic change. Old lacunar infarcts noted in the right basal ganglia and thalami. Proportional ventricular and sulcal prominence likely age-related parenchymal volume loss. No mass effect or midline shift. No hemorrhage. No extra-axial fluid collection. T2 skull base flow voids preserved. Bone marrow signal intensity within the calvarium within normal limits. IMPRESSION: 1. Small focus of acute ischemia in the subcortical white matter of the posterior left frontal region. This likely represents an acute lacunar infarct versus, less likely, embolic infarct. 2. Multiple old lacunar infarcts and extensive chronic small vessel ischemic change. Electronically signed by: Ignacio Read M.D. 01/10/2017 10:06 AM Dictated Date/Time: 01/10/2017 10:01 AM
[2017-01-10] MEDS: FAMOTIDINE IV INJ 20 MG in DEXTROSE 5% 100ML 100 ML IV SCH ×2 (10:10→20:49)
--- NOTE | 2017-01-10 11:14 | Gastrointestinal Consultation ---
Gastrointestinal Consultation Date of Consultation: Jan 10, 2017 Attending Physician: Redd Bautista Consulting Physician: Michael Mckinney Reason for Consultation: Heme positive stools, anemia History of Present Illness Patient is a 81 year old female w PMHx of DM II, anemia, who is visiting w family from [place], brought to hospital for sudden onset of slurred speech, noticed also to have R facial droop. Stroke protocol started. She had negative CT head, though evidence of possible chronic and new infracts on MRA/MRI. She is currently on bed, having echocardiogram, daughter at bedside. GI consulted as pt was noted to be anemic on admission labs. Hgb was around 7, improved to 9 after 2U PRBC transfusion overnight. She also tested heme positive stools when rectal exam was done in the ED. She has chronic anemia and is on iron supplements prior to admission. She denies any s/s of hematemesis, coffee ground emesis, blood or dark/tarry stools, abd pain, n/v. She had hx of colonoscopy 10-12 yrs ago w findings of benign polyp, due to have repeat screening colonoscopy in [place] at first week of January. Denies any family hx of colorectal ca, IBD. No personal hx of PUD or GI bleeding. Past Medical/Surgical History Medical Problems: (1) Anemia Status: Chronic (2) Symptomatic anemia Status: Acute (3) TIA (transient ischemic attack) Status: Acute Past Medical History: See above Family History Stroke MOTHER GRANDMOTHER Social History Smoking Status: Never Smoker Drug Use: none Occupation Status: retired Allergies Coded Allergies: Sulfa Antibiotics (Unverified Allergy, Unknown, ., 01/09/17) Current Medications Home Meds and Scripts Medications Dose Route/Sig Max Daily Dose Days Date Category Januvia (Sitagliptin Phosphate) 100 Mg Tab 100 Mg PO DAILY 01/09/17 Reported Pioglitazone Hcl 45 Mg Tab 45 Mg PO DAILY 01/09/17 Reported Zestoretic 20MG/12.5MG (HCTZ/Lisinopril) Tab 1 Tab PO DAILY 01/09/17 Reported Norvasc (Amlodipine Besylate) 5 Mg Tab 5 Mg PO DAILY 01/09/17 Reported Vitamin D 04165 Unit (Ergocalciferol) 50,000 Unit Cap 50,000 Unit PO WK 01/09/17 Reported Review of Systems Constitutional: No fever, No chills Respiratory: No shortness of breath Cardiac: No chest pain Abdomen: + see HPI, No pain, No nausea, No vomiting, No GI bleeding Neuro: + see HPI, + problem reported (slurred speech, R facial droop) Physical Exam Date Time Temp Pulse Resp B/P (MAP) Pulse Ox O2 Delivery O2 Flow Rate FiO2 01/10/17 10:00 97 Room Air 01/10/17 08:59 68 18 97 01/10/17 07:55 Room Air 01/10/17 07:35 76 18 183/91 (121) 96 Room Air 01/10/17 07:25 68 18 180/84 (116) 97 Room Air 01/10/17 07:02 36.9 69 18 161/82 (108) 93 Room Air 01/10/17 06:00 36.7 88 16 143/76 92 01/10/17 05:30 36.9 67 16 144/96 94 01/10/17 05:00 36.9 72 18 166/84 96 01/10/17 04:45 36.8 76 18 157/81 94 01/10/17 04:28 36.7 85 20 161/83 97 01/10/17 04:00 Room Air 01/10/17 03:35 36.7 80 18 149/70 90 01/10/17 03:05 36.9 80 18 148/76 91 01/10/17 02:35 36.6 80 16 146/78 91 01/10/17 02:20 36.8 77 18 158/76 94 01/10/17 02:05 36.8 87 20 164/78 94 01/10/17 00:00 Room Air 01/09/17 23:43 36.7 87 16 134/75 (94) 95 Room Air 01/09/17 20:48 36.7 78 18 161/67 (98) 93 Room Air 01/09/17 20:00 Room Air 01/09/17 17:20 76 157/64 (95) 01/09/17 16:00 36.8 82 18 172/76 (108) 95 Room Air 01/09/17 16:00 Room Air 01/09/17 15:44 98 18 162/77 95 01/09/17 14:45 81 16 169/66 96 Room Air 01/09/17 14:33 Room Air 01/09/17 13:34 110 01/09/17 12:58 78 15 180/68 98 Room Air 01/09/17 11:36 89 16 184/97 98 Room Air 01/09/17 11:11 36.7 92 16 177/76 98 Room Air General Appearance: no apparent distress, + obese Eyes: normal inspection, PERRL, EOMI Neck: supple, no JVD, trachea midline Respiratory/Chest: no respiratory distress, no accessory muscle use Abdomen: soft Extremities: no pedal edema Neurologic/Psych: oriented x 3, + pertinent finding (slurred speech, R facial droop) Laboratory Results Last 24 Hours Test 01/09/17 11:30 01/09/17 11:37 01/09/17 11:52 01/09/17 16:08 White Blood Count 7.03 K/uL Red Blood Count 2.72 M/uL Hemoglobin 7.5 g/dL Hematocrit 24.3 % Mean Corpuscular Volume 89.3 fL Mean Corpuscular Hemoglobin 27.6 pg Mean Corpuscular Hemoglobin Concent 30.9 g/dl Platelet Count 423 K/uL Mean Platelet Volume 9.3 fL Neutrophils (%) (Auto) 56.4 % Lymphocytes (%) (Auto) 35.6 % Monocytes (%) (Auto) 5.1 % Eosinophils (%) (Auto) 2.7 % Basophils (%) (Auto) 0.1 % Neutrophils # (Auto) 3.96 K/uL Lymphocytes # (Auto) 2.50 K/uL Monocytes # (Auto) 0.36 K/uL Eosinophils # (Auto) 0.19 K/uL Basophils # (Auto) 0.01 K/uL RDW Standard Deviation 53.8 fL RDW Coefficient of Variation 16.4 % Immature Granulocyte % (Auto) 0.1 % Immature Granulocyte # (Auto) 0.01 K/uL Nucleated RBC Absolute Count (auto) 0.00 K/uL Nucleated Red Blood Cells % 0.0 % Polychromasia 1+ Absolute Reticulocyte Count 0.06 10^6/uL Percent Reticulocyte Count 2.1 % Sodium Level 141 mmol/L Potassium Level 3.5 mmol/L Chloride Level 106 mmol/L Carbon Dioxide Level 27 mmol/L Anion Gap 8.0 mmol/L Blood Urea Nitrogen 33 mg/dl Creatinine 1.90 mg/dl Est Creatinine Clear Calc Drug Dose 26.0 ml/min Estimated GFR () 28.6 Estimated GFR (Non- 24.6 BUN/Creatinine Ratio 17.3 Random Glucose 158 mg/dl Calcium Level 9.7 mg/dl Magnesium Level 2.2 mg/dl Iron Level 25 mcg/dl Total Iron Binding Capacity 387 mcg/dl Total Bilirubin 0.3 mg/dl Aspartate Amino Transf (AST/SGOT) 9 U/L Alanine Aminotransferase (ALT/SGPT) 13 U/L Alkaline Phosphatase 80 U/L Total Protein 7.5 gm/dl Albumin 3.7 gm/dl Globulin 3.8 gm/dl Albumin/Globulin Ratio 1.0 Bedside Prothrombin Time INR 1.1 Bedside Glucose 161 mg/dl 114 mg/dl Test 01/09/17 17:59 01/09/17 21:12 01/10/17 00:13 01/10/17 07:33 White Blood Count 6.29 K/uL Red Blood Count 2.69 M/uL Hemoglobin 7.0 g/dL 6.7 g/dL Hematocrit 24.4 % 21.9 % Mean Corpuscular Volume 90.7 fL Mean Corpuscular Hemoglobin 26.0 pg Mean Corpuscular Hemoglobin Concent 28.7 g/dl RDW Standard Deviation 54.1 fL RDW Coefficient of Variation 16.5 % Platelet Count 358 K/uL Mean Platelet Volume 8.9 fL Bedside Glucose 104 mg/dl 128 mg/dl Test 01/10/17 08:14 01/10/17 08:22 Bedside Glucose 131 mg/dl White Blood Count 6.00 K/uL Red Blood Count 3.47 M/uL Hemoglobin 9.7 g/dL Hematocrit 31.5 % Mean Corpuscular Volume 90.8 fL Mean Corpuscular Hemoglobin 28.0 pg Mean Corpuscular Hemoglobin Concent 30.8 g/dl Platelet Count 356 K/uL Mean Platelet Volume 8.9 fL Neutrophils (%) (Auto) 64.8 % Lymphocytes (%) (Auto) 26.0 % Monocytes (%) (Auto) 5.5 % Eosinophils (%) (Auto) 3.2 % Basophils (%) (Auto) 0.2 % Neutrophils # (Auto) 3.89 K/uL Lymphocytes # (Auto) 1.56 K/uL Monocytes # (Auto) 0.33 K/uL Eosinophils # (Auto) 0.19 K/uL Basophils # (Auto) 0.01 K/uL RDW Standard Deviation 53.0 fL RDW Coefficient of Variation 16.0 % Immature Granulocyte % (Auto) 0.3 % Immature Granulocyte # (Auto) 0.02 K/uL Prothrombin Time 10.9 SECONDS Prothromb Time International Ratio 1.0 Activated Partial Thromboplast Time 22.7 SECONDS Partial Thromboplastin Ratio 0.9 Sodium Level 141 mmol/L Potassium Level 3.4 mmol/L Chloride Level 105 mmol/L Carbon Dioxide Level 28 mmol/L Anion Gap 8.0 mmol/L Blood Urea Nitrogen 20 mg/dl Creatinine 1.20 mg/dl Est Creatinine Clear Calc Drug Dose 40.7 ml/min Estimated GFR () 49.8 Estimated GFR (Non- 43.0 BUN/Creatinine Ratio 16.3 Random Glucose 141 mg/dl Estimated Average Glucose 140 mg/dl Hemoglobin A1c 6.5 % Calcium Level 9.9 mg/dl Phosphorus Level 2.8 mg/dl Magnesium Level 2.0 mg/dl Total Bilirubin 1.1 mg/dl Direct Bilirubin 0.3 mg/dl Aspartate Amino Transf (AST/SGOT) 15 U/L Alanine Aminotransferase (ALT/SGPT) 13 U/L Alkaline Phosphatase 84 U/L Total Protein 7.5 gm/dl Albumin 3.7 gm/dl Impression Patient is a 81 year old female w acute onset of slurred speech, R facial drop. Negative CT but brain MRI suggestive of old & new infracts w ischemic vessels changes as well. She is currently undergoing stroke eval and protocol had been initiated. She has chronic anemia, on iron supplements prior to admission. Admission Hgb around 7, improved to 9 after 2U PRBC transfusion. Rectal exam did reveal positive heme stools though no s/s of leatha GI bleeding. Given possible interaction of PPI w Plavix, Neurology had recommended pt to be on Ranitidine instead for coverage in setting of possible GI bleeding. She had been started on ASA as well for the stroke. Plan - Monitor H/H and transfuse prn - Continue Ranitidine IV - Will follow but no plans for endoscopic evals given stroke and no s/s of leatha GI bleeding. ATTESTATION: I have performed a history and physical examination of gorgea patient and reviewed the electronic record. Specifically, on physical examination there is no sign of active bleeding despite positive hemoccult. In view of patient's plan to return to [place] on discharge, I recommend close follow up with her regular physicians. I have discussed the case with DALTON Vences. The above note reflects my findings, conclusions, and recommendations. Michael Mckinney MD
[2017-01-10 12:28] LABS: BASO % 0.3 %; BASO ABS # 0.02 K/uL (0-0.2); COMPLETE YES; EOS % 1.2 %; HEMATOCRIT 30.8 % (37-47); IG% 0.5 %; LYMPH % 19.4 %; LYMPH ABS # 1.14 K/uL (1.2-3.4); MEAN CELL VOLUME 88.3 fL (80-100); MEAN CORPUSCULAR HEMOGLOBIN 28.1 pg (25-34); MEAN CORPUSCULAR HGB CONC 31.8 g/dl (32-36); MEAN PLATELET VOLUME 9.3 fL (7.4-10.4); MONO % 5.5 %; NEUT % 73.1 %; PLATELET COUNT 351 K/uL (130-400); RED BLOOD COUNT 3.49 M/uL (4.2-5.4); WHITE BLOOD COUNT 5.87 K/uL (4.8-10.8)
--- NOTE | 2017-01-10 12:37 | ECHOCARDIOGRAM REPORT ---
*NOTICE TO RECEIVING CONSTITUTION PARTY AGENCY This information is strictly Confidential and protected under [place] law. [place] law prohibits you from making any further disclosure of this information unless further disclosure is expressly permitted by the written consent of the person to whom it pertains or is authorized by law. A general authorization for the release of medical or other information is not sufficient for this purpose. Hospital accepts no responsibility if the information is made available to any other person, INCLUDING THE PATIENT. Interpretation Summary * Name: AJIT HEATH Study Date: 01/10/2017 10:13 AM BP: 183/91 mmHg * Patient Location: C.2T\S\E216\S\1 HR: 68 * : 1935 (M/d/yyyy) Gender: Female Height: 64 in * Age: 81 yrs Ethnicity: CA Weight: 192 lb * Ordering Physician: Redd Bautista * Referring Physician: Self, Referred * Performed By: Citlali Espinoza RDCS * * Reason For Study: Stroke * BSA: 1.9 m2 * The study was technically limited. * There is no comparison study available. * -- Conclusions -- * Ejection Fraction = 65-70%. * There is mild concentric left ventricular hypertrophy. * Injection of contrast documented no interatrial shunt. * There is moderate mitral annular calcification. Procedure Details * A complete two-dimensional transthoracic echocardiogram was performed (2D, M-mode, Doppler and color flow Doppler). * A saline contrast injection was performed to assess for cardiac shunting. * The injection was performed through an intravenous line in the left arm. * The attending nurse who injected the saline contrast was Jaime Hernandez RN. * A total of 30 cc of agitated saline was given. Left Ventricle * The left ventricle is normal in size. * There is no thrombus. * There is mild concentric left ventricular hypertrophy. * The basal septum is thickened and angulated consistent with sigmoid septum. * Ejection Fraction = 65-70%. * Left ventricular systolic function is normal. * The left ventricular wall motion is normal. Right Ventricle * The right ventricle is normal size. * The right ventricular systolic function is normal as assessed by tricuspid annular plane systolic excursion (TAPSE) (normal >1.5 cm). Atria * The left atrial size is normal. * Right atrial size is normal. * Injection of contrast documented no interatrial shunt. Mitral Valve * There is moderate mitral annular calcification. * There is no mitral valve stenosis. * Significant mitral regurgitation is absent. Tricuspid Valve * The tricuspid valve is not well visualized. * There is no tricuspid stenosis. * Significant tricuspid regurgitation is absent. Aortic Valve * The aortic valve is not well visualized. * Aortic stenosis is absent. * There is no significant aortic regurgitation. Pulmonic Valve * The pulmonary valve is not well seen, but the Doppler examination is normal without significant regurgitation or stenosis. Great Vessels * The aortic root is normal size. Pericardium/Pleural * There is no pericardial effusion. Great Vessels * Normal inferior vena cava diameter and respiratory variation suggests normal central venous pressure. Left Ventricular Diastolic Function * Pulse wave TDI of the anterior and posterior mitral annulas demonstrates normal LV relaxation MMode 2D Measurements and Calculations IVSd 1.2 cm LVIDd 3.2 cm LVIDs 2.2 cm LVPWd 1.3 cm IVS/LVPW 0.97 FS 32.8 % EDV(Teich) 42.3 ml ESV(Teich) 15.8 ml EF(Teich) 62.6 % EDV(cubed) 34.1 ml ESV(cubed) 10.3 ml EF(cubed) 69.7 % LV mass(C)d 130.8 grams LV mass(C)dI 68.0 grams/m\S\2 SV(Teich) 26.5 ml SI(Teich) 13.8 ml/m\S\2 SV(cubed) 23.7 ml SI(cubed) 12.4 ml/m\S\2 Ao root diam 2.8 cm Ao root area 6.0 cm\S\2 ACS 1.3 cm LA dimension 2.4 cm asc Aorta Diam 2.3 cm LA/Ao 0.87 LVOT diam 2.0 cm LVOT area 3.0 cm\S\2 LVAd ap4 22.8 cm\S\2 LVLd ap4 7.3 cm EDV(MOD-sp4) 57.8 ml EDV(sp4-el) 60.5 ml LVAs ap4 11.2 cm\S\2 LVLs ap4 5.5 cm ESV(MOD-sp4) 18.3 ml ESV(sp4-el) 19.2 ml EF(MOD-sp4) 68.4 % EF(sp4-el) 68.2 % LVAd ap2 15.5 cm\S\2 LVLd ap2 7.3 cm EDV(MOD-sp2) 27.2 ml EDV(sp2-el) 28.1 ml LVAs ap2 8.0 cm\S\2 LVLs ap2 5.7 cm ESV(MOD-sp2) 9.4 ml ESV(sp2-el) 9.6 ml EF(MOD-sp2) 65.3 % EF(sp2-el) 65.8 % LVLd %diff 0.17 % EDV(MOD-bp) 39.5 ml LVLs %diff 3.8 % ESV(MOD-bp) 13.3 ml EF(MOD-bp) 66.4 % SV(MOD-sp4) 39.6 ml SI(MOD-sp4) 20.6 ml/m\S\2 SV(MOD-sp2) 17.7 ml SI(MOD-sp2) 9.2 ml/m\S\2 SV(MOD-bp) 26.2 ml SI(MOD-bp) 13.6 ml/m\S\2 SV(sp4-el) 41.3 ml SI(sp4-el) 21.5 ml/m\S\2 SV(sp2-el) 18.5 ml SI(sp2-el) 9.6 ml/m\S\2 Doppler Measurements and Calculations MV E max varun 105.7 cm/sec MV A max varun 140.2 cm/sec MV E/A 0.75 MV dec time 0.30 sec Ao V2 max 158.9 cm/sec Ao max PG 10.1 mmHg Ao max PG (full) 4.4 mmHg JUAN ANTONIO(V,A) 2.3 cm\S\2 JUAN ANTONIO(V,D) 2.3 cm\S\2 LV V1 max PG 5.7 mmHg LV V1 max 119.4 cm/sec PA V2 max 123.6 cm/sec PA max PG 6.1 mmHg PA acc slope 302.8 cm/sec\S\2 PA acc time 0.19 sec TR max varun 103.0 cm/sec PA pr(Accel) -4.33 mmHg
[2017-01-10 12:49] LABS: BUN/CREATININE RATIO 14.7 (10-20); CALCIUM 9.9 mg/dl (8.5-10.1); CREATININE 1.2 mg/dl (0.60-1.20)
[2017-01-10] MEDS ORDERED: ASPIRIN 81 MG ECTAB PO ONE (15:00)
[2017-01-10 16:35] LABS: HEMATOCRIT 30.5 % (37-47)
[2017-01-10] MEDS ORDERED: NURSING VERBAL MED ORDER ONE (16:45)
--- NOTE | 2017-01-10 17:02 | CONSULTATION REPORT ---
DATE OF CONSULTATION: 01/10/2017 FOR: Dr. Bautista. HISTORY OF PRESENT ILLNESS: Desiree is 81 years old with no assigned physician and is a resident of [facility] was visiting her relatives in [place] and developed a new onset of slurred speech, witnessed by her daughter and for which she was brought to the Emergency Room. The episode lasted about 30 minutes, resolved before she arrived and it was felt that she simply needed admission for evaluation and observation. PAST MEDICAL HISTORY: Reveals hypertension, on oral antihypertensives at home and oral antihyperglycemic medications, prescribed by her physician in [place], Dr. Thomson. She apparently did not take her medications and when she arrived in the Emergency Room, her blood pressure was over 200 systolic. Her diabetes controlled, apparently has been good with a hemoglobin A1c less than 6. ____ some guaiac positive stools on rectal examination and apparently she does have a history of anemia in the past and it is not clear whether this is going to be worked up. Her last colonoscopy apparently did show a polyp and she is due for repeat evaluation, when she returns to [place]. PAST MEDICAL HISTORY: Therefore, contains anemia, diabetes and the acute episode of slurred speech last night which unfortunately recurred this morning and has persisted ever since and is associated now with some right upper motor neuron facial paresis and clumsiness of the right arm without any significant involvement of the leg and with some subjective numbness. This resulted in a stroke alert, but at that point in light of the chronicity of her symptoms, it was felt that TPA was not indicated. 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 She has been placed on aspirin and Plavix and is going to be followed carefully for GI bleeding in light of her Hematest-positive stool on her chronic anemia. FAMILY HISTORY: Reveals her mother and grandmother both had strokes. SOCIAL HISTORY: Reveals her to be a never smoker. She does not consume ethanol. She is retired. ALLERGIES: INCLUDE SULFA. SCHEDULED MEDICATIONS AT HOME: Include amlodipine, vitamin D, lisinopril/hydrochlorothiazide, pioglitazone and Januvia. REVIEW OF SYSTEMS: Reveals reasonably good recent health. No fever, sweats, chills. No new issues referable to head, eyes, ears, nose and throat, cardiovascular, pulmonary, gastrointestinal, genitourinary systems. Other than the chronic anemia, this causation has never been established. Neurologically, she denies any prior cerebrovascular events, any history consistent with neuropathy. No cognitive impairment, no headaches, etc. PHYSICAL EXAMINATION: VITAL SIGNS: Her blood pressure yesterday was 169/66, pulse was 81, respirations were 16. Initial systolic blood pressure was over 200. She was a well-developed, well-nourished. No abnormalities were noted on examination of head, eyes, ears, nose and throat, cardiovascular/pulmonary/abdomen or extremities. NEUROLOGIC: Today neurologically, she is awake, alert, oriented. She has no word-finding deficits. She can, repeat, identify objects but has clear articulatory disturbances, right upper motor neuron facial paresis, mild to moderate in severity, some slight redundant sensation subjectively to light touch over the right side of her face, normal extraocular movements, normal visual eugene, a slight drift to the right upper extremity, mild clumsiness or rapid repetitive motions of the right arm, normal reflexes with the exception of absent ankle jerks, downgoing toes, trace positive Thomson on the right, normal strength and no abnormal involuntary movements in the form of choreiform activity, tics or tremors. IMPRESSION AND PLAN: I think this woman has had intracranial small vessel cortical event, which presented initially with transient ischemic attack-like affair yesterday then cleared and now has reemerged with a fixed deficit. I agree with the use of both aspirin and Plavix as this would be the choice for intracranial disease. We certainly have no evidence for cardiac arrhythmia to date. There is no evidence for a cardiogenic source of emboli and Coumadin in this setting certainly has a higher risk and no superiority to combined dual antiplatelet therapy. I will check back with her tomorrow, but for now I do not have any other further neurologic suggestions. IRIS
[2017-01-11 03:16] VITALS: BP 170/84; PULSE 86; TEMP 36.6; O2SAT 98
[2017-01-11] MEDS: INSULIN ASPART 100 UNITS/ML 3 ML PEN SC SCH ×3 (07:00→16:15)
[2017-01-11 07:13] LABS: BASO % 0.4 %; BASO ABS # 0.02 K/uL (0-0.2); COMPLETE YES; EOS % 4.5 %; HEMATOCRIT 31.6 % (37-47); IG% 0.2 %; LYMPH % 31.8 %; LYMPH ABS # 1.75 K/uL (1.2-3.4); MEAN CELL VOLUME 90.8 fL (80-100); MEAN CORPUSCULAR HEMOGLOBIN 27.3 pg (25-34); MEAN CORPUSCULAR HGB CONC 30.1 g/dl (32-36); MEAN PLATELET VOLUME 8.9 fL (7.4-10.4); NEUT % 55.1 %; PLATELET COUNT 357 K/uL (130-400); RED BLOOD COUNT 3.48 M/uL (4.2-5.4); WHITE BLOOD COUNT 5.51 K/uL (4.8-10.8)
[2017-01-11 07:45] LABS: BUN/CREATININE RATIO 14.5 (10-20); CALCIUM 9.9 mg/dl (8.5-10.1); CREATININE 1.5 mg/dl (0.60-1.20); POTASSIUM 3.7 mmol/L (3.5-5.1)
[2017-01-11 07:48] LABS: CHOLESTEROL/HDL RATIO 3.1
[2017-01-11 08:00] VITALS: BP 174/89; PULSE 79; TEMP 37; O2SAT 96; O2SAT 97
[2017-01-11] MEDS ORDERED: CLOPIDOGREL BISULFATE 75 MG TAB PO SCH ×2 (09:00→18:45)
[2017-01-11] MEDS ORDERED: AMLODIPINE BESYLATE 5 MG TAB PO ONE (10:00)
[2017-01-11] MEDS ORDERED: SODIUM CHLORIDE 0.9% 1000ML 1,000 ML IV SCH (10:00)
[2017-01-11] MEDS: FAMOTIDINE IV INJ 20 MG in DEXTROSE 5% 100ML 100 ML IV SCH (10:12)
--- NOTE | 2017-01-11 10:27 | Gastroenterology Progress Note ---
Progress Note Date of Service: Jan 11, 2017 Subjective Pt evaluation today including: conversation w/ patient, conversation w/ family , physical exam, chart review, lab review, review of inpatient medication list Pt's speech is a bit more clear today, not as slurred. Still w R facial droop. H /H stable around 9 after 2U PRBC transfusion. She had a BM yesterday which was brown in color, denies any dark tarry stools or rectal bleeding. Had solid for breakfast, denies any n/v, abd pain. Review of Systems Constitutional: No fever, No chills Respiratory: No cough, No shortness of breath Cardiac: No chest pain Abdomen: No pain, No nausea, No vomiting, No GI bleeding Neuro: + problem reported (TIA symptoms on admission w slurred speech, R facial gtt. ) Medications Current Inpatient Medications Medications (Trade) Dose Ordered Sig/Ariella Route Start Time Stop Time Status Last Admin Dose Admin Glucose (Glucose 40% Gel) 15-30 GRAMS 15 GRAMS... UD PRN PO 01/09/17 15:15 02/08/17 15:14 Glucose (Glucose Chew Tab) 4-8 Tablets 4 Tabl... UD PRN PO 01/09/17 15:15 02/08/17 15:14 Dextrose (Dextrose 50% 50ML Syringe) 25-50ML OF 50% DW IV FOR... UD PRN IV 01/09/17 15:15 02/08/17 15:14 Glucagon (Glucagon Inj) 1 mg UD PRN SQ 01/09/17 15:15 02/08/17 15:14 Insulin Aspart (novoLOG ASPART) SLIDING SCALE If C... ACHS SC 01/09/17 21:00 02/08/17 20:59 Famotidine 20 mg/ Dextrose 102 ml @ 200 mls/hr Q12H IV 01/10/17 10:00 02/09/17 09:59 01/11/17 10:12 200 MLS/HR Labetalol HCl (Normodyne IV) 10 mg Q6H PRN IV 01/10/17 08:45 02/09/17 08:44 Clopidogrel Bisulfate (plAVix TAB) 75 mg QAM PO 01/11/17 09:00 02/10/17 08:59 01/11/17 07:53 75 MG Aspirin (Ecotrin Tab) 81 mg QAM PO 01/10/17 09:00 02/09/17 08:59 Future hold 01/11/17 07:52 81 MG Atorvastatin Calcium (Lipitor Tab) 40 mg QAM PO 01/10/17 09:00 02/09/17 08:59 Future hold 01/11/17 07:52 40 MG Miscellaneous Information (Pharmacist Discharge Med Rec Consult) 1 ea UD PRN N/A 01/10/17 08:45 02/09/17 08:44 Amlodipine Besylate (Norvasc Tab) 5 mg QAM PO 01/12/17 09:00 02/11/17 08:59 Sodium Chloride 1,000 ml @ 75 mls/hr [id number] IV 01/11/17 10:00 02/10/17 09:59 01/11/17 10:12 60 MLS/HR Ferrous Sulfate (Feosol Tab) 325 mg TIDM PO 01/11/17 11:30 02/10/17 11:29 Objective Vital Signs Date Time Temp Pulse Resp B/P (MAP) Pulse Ox O2 Delivery O2 Flow Rate FiO2 01/11/17 08:00 97 Room Air 01/11/17 08:00 37.0 79 18 174/89 (117) 96 Room Air 01/11/17 04:00 Room Air 01/11/17 03:16 36.6 86 16 170/84 (112) 98 Room Air 01/10/17 23:59 Room Air 01/10/17 23:31 36.9 89 18 152/78 (102) 95 Room Air 01/10/17 20:00 Room Air 01/10/17 19:02 36.7 82 18 148/81 (103) 98 Room Air 01/10/17 16:11 36.9 87 18 142/81 (101) 91 Room Air 01/10/17 16:00 Room Air 01/10/17 12:00 97 Room Air 01/10/17 11:17 36.5 84 18 167/91 (116) 97 Room Air Physical Exam General Appearance: WD/WN, no apparent distress, + obese Eyes: normal inspection, PERRL, EOMI Neck: supple, no JVD, trachea midline Respiratory/Chest: normal breath sounds, no respiratory distress, no accessory muscle use Cardiovascular: regular rate, rhythm, no gallop, no murmur Abdomen: normal bowel sounds, non tender, soft Extremities: normal inspection, no pedal edema, no calf tenderness Neurologic/Psych: alert, normal mood/affect, + pertinent finding (R facial droop; slurred speech improved ) Skin: normal color, no jaundice, no rash Laboratory Results Last 24 Hours Test 01/10/17 11:03 01/10/17 12:06 01/10/17 16:06 01/10/17 20:10 Bedside Glucose 154 mg/dl 134 mg/dl 123 mg/dl White Blood Count 5.87 K/uL Red Blood Count 3.49 M/uL Hemoglobin 9.8 g/dL 9.7 g/dL Hematocrit 30.8 % 30.5 % Mean Corpuscular Volume 88.3 fL Mean Corpuscular Hemoglobin 28.1 pg Mean Corpuscular Hemoglobin Concent 31.8 g/dl Platelet Count 351 K/uL Mean Platelet Volume 9.3 fL Neutrophils (%) (Auto) 73.1 % Lymphocytes (%) (Auto) 19.4 % Monocytes (%) (Auto) 5.5 % Eosinophils (%) (Auto) 1.2 % Basophils (%) (Auto) 0.3 % Neutrophils # (Auto) 4.29 K/uL Lymphocytes # (Auto) 1.14 K/uL Monocytes # (Auto) 0.32 K/uL Eosinophils # (Auto) 0.07 K/uL Basophils # (Auto) 0.02 K/uL RDW Standard Deviation 51.0 fL RDW Coefficient of Variation 15.9 % Immature Granulocyte % (Auto) 0.5 % Immature Granulocyte # (Auto) 0.03 K/uL Sodium Level 140 mmol/L Potassium Level 4.0 mmol/L Chloride Level 106 mmol/L Carbon Dioxide Level 27 mmol/L Anion Gap 7.0 mmol/L Blood Urea Nitrogen 18 mg/dl Creatinine 1.20 mg/dl Est Creatinine Clear Calc Drug Dose 40.7 ml/min Estimated GFR () 49.8 Estimated GFR (Non- 43.0 BUN/Creatinine Ratio 14.7 Random Glucose 147 mg/dl Calcium Level 9.9 mg/dl Total Bilirubin 0.9 mg/dl Aspartate Amino Transf (AST/SGOT) 14 U/L Alanine Aminotransferase (ALT/SGPT) 13 U/L Alkaline Phosphatase 84 U/L Total Protein 7.6 gm/dl Albumin 3.8 gm/dl Globulin 3.8 gm/dl Albumin/Globulin Ratio 1.0 Test 01/11/17 06:34 01/11/17 06:42 Bedside Glucose 115 mg/dl White Blood Count 5.51 K/uL Red Blood Count 3.48 M/uL Hemoglobin 9.5 g/dL Hematocrit 31.6 % Mean Corpuscular Volume 90.8 fL Mean Corpuscular Hemoglobin 27.3 pg Mean Corpuscular Hemoglobin Concent 30.1 g/dl Platelet Count 357 K/uL Mean Platelet Volume 8.9 fL Neutrophils (%) (Auto) 55.1 % Lymphocytes (%) (Auto) 31.8 % Monocytes (%) (Auto) 8.0 % Eosinophils (%) (Auto) 4.5 % Basophils (%) (Auto) 0.4 % Neutrophils # (Auto) 3.04 K/uL Lymphocytes # (Auto) 1.75 K/uL Monocytes # (Auto) 0.44 K/uL Eosinophils # (Auto) 0.25 K/uL Basophils # (Auto) 0.02 K/uL RDW Standard Deviation 53.5 fL RDW Coefficient of Variation 16.1 % Immature Granulocyte % (Auto) 0.2 % Immature Granulocyte # (Auto) 0.01 K/uL Sodium Level 141 mmol/L Potassium Level 3.7 mmol/L Chloride Level 108 mmol/L Carbon Dioxide Level 27 mmol/L Anion Gap 6.0 mmol/L Blood Urea Nitrogen 22 mg/dl Creatinine 1.50 mg/dl Est Creatinine Clear Calc Drug Dose 32.4 ml/min Estimated GFR () 38.0 Estimated GFR (Non- 32.8 BUN/Creatinine Ratio 14.5 Random Glucose 116 mg/dl Calcium Level 9.9 mg/dl Triglycerides Level 121 mg/dl Cholesterol Level 196 mg/dl HDL Cholesterol 63 mg/dl LDL Cholesterol, Calculated 109 mg/dl VLDL Cholesterol, Calculated 24 mg/dl Cholesterol/HDL Ratio 3.1 Assessment and Plan Patient is a 81 year old female w acute onset of slurred speech, R facial drop. Negative CT but brain MRI suggestive of old & new infracts w ischemic vessels changes as well. She is currently undergoing stroke eval and protocol had been initiated. She has chronic anemia, on iron supplements prior to admission. Admission Hgb around 7, improved to 9 after 2U PRBC transfusion. Rectal exam did reveal positive heme stools though no s/s of leatha GI bleeding. Given possible interaction of PPI w Plavix, Neurology had recommended pt to be on Ranitidine instead for coverage in setting of possible GI bleeding. She had been started on ASA as well for the stroke. H/H stable around 9 since 2U PRBC transfusion. No s/s of GI bleeding, normal colored BM yesterday. Tolerating regular diet well. Plans - Monitor H/H and transfuse prn - Continue Ranitidine IV - Will sign off; No endoscopic plans at this time, but she needs to f/u w her local [employer] [facility] [employer] [facility] at [facility] to discuss further workup for her anemia. I saw and evaluated the patient. GI is consult at for heme positive stool in the setting of her recent stroke. The patient will follow with her regular GI provider as an outpatient to determine if endoscopic evaluations are needed in the future.
--- NOTE | 2017-01-11 10:34 | Progress Note ---
Medicine Progress Note Date & Time of Visit: Jan 11, 2017 at 10:22. Subjective patient seen resting in bedside chair states she feels improved today feels slurred speech has improved, denies facial numbness, does feel right hand is heavier states she did fine with PT and OT denies melena/hematochezia no chest pain, dyspnea, dizziness, nausea/vomiting, abdominal pain, no other symptoms re-evaluated at 5pm no changes comfortable states she is ready and would like to be discharged today Objective Last 8 Hrs Date Time Temp Pulse Resp B/P (MAP) Pulse Ox O2 Delivery O2 Flow Rate FiO2 01/11/17 08:00 97 Room Air 01/11/17 08:00 37.0 79 18 174/89 (117) 96 Room Air 01/11/17 04:00 Room Air 01/11/17 03:16 36.6 86 16 170/84 (112) 98 Room Air Physical Exam: General- oriented x 3, not in distress, speaks in sentences with no effort Eyes- anicteric Neck- no JVD Lungs- clear breath sounds bilaterally Heart- regular rhythm; no murmur, normal rate Abdomen- normal bowel sounds, soft, nontender Extremities- no pretibial edema, no calf tenderness Neuro- alert, oriented x 3; PERRL, EOMI;(+) mild dysartrhia, and right facial droop- mild otherwise CN2-12 grossly intact; motor 5/5 bilaterally; sensation 100% on all ext, finger to nose intact bilaterally Skin- warm & dry Laboratory Results: Last 24 Hours Test 01/10/17 11:03 01/10/17 12:06 01/10/17 16:06 01/10/17 20:10 Bedside Glucose 154 mg/dl 134 mg/dl 123 mg/dl White Blood Count 5.87 K/uL Red Blood Count 3.49 M/uL Hemoglobin 9.8 g/dL 9.7 g/dL Hematocrit 30.8 % 30.5 % Mean Corpuscular Volume 88.3 fL Mean Corpuscular Hemoglobin 28.1 pg Mean Corpuscular Hemoglobin Concent 31.8 g/dl Platelet Count 351 K/uL Mean Platelet Volume 9.3 fL Neutrophils (%) (Auto) 73.1 % Lymphocytes (%) (Auto) 19.4 % Monocytes (%) (Auto) 5.5 % Eosinophils (%) (Auto) 1.2 % Basophils (%) (Auto) 0.3 % Neutrophils # (Auto) 4.29 K/uL Lymphocytes # (Auto) 1.14 K/uL Monocytes # (Auto) 0.32 K/uL Eosinophils # (Auto) 0.07 K/uL Basophils # (Auto) 0.02 K/uL RDW Standard Deviation 51.0 fL RDW Coefficient of Variation 15.9 % Immature Granulocyte % (Auto) 0.5 % Immature Granulocyte # (Auto) 0.03 K/uL Sodium Level 140 mmol/L Potassium Level 4.0 mmol/L Chloride Level 106 mmol/L Carbon Dioxide Level 27 mmol/L Anion Gap 7.0 mmol/L Blood Urea Nitrogen 18 mg/dl Creatinine 1.20 mg/dl Est Creatinine Clear Calc Drug Dose 40.7 ml/min Estimated GFR () 49.8 Estimated GFR (Non- 43.0 BUN/Creatinine Ratio 14.7 Random Glucose 147 mg/dl Calcium Level 9.9 mg/dl Total Bilirubin 0.9 mg/dl Aspartate Amino Transf (AST/SGOT) 14 U/L Alanine Aminotransferase (ALT/SGPT) 13 U/L Alkaline Phosphatase 84 U/L Total Protein 7.6 gm/dl Albumin 3.8 gm/dl Globulin 3.8 gm/dl Albumin/Globulin Ratio 1.0 Test 01/11/17 06:34 01/11/17 06:42 Bedside Glucose 115 mg/dl White Blood Count 5.51 K/uL Red Blood Count 3.48 M/uL Hemoglobin 9.5 g/dL Hematocrit 31.6 % Mean Corpuscular Volume 90.8 fL Mean Corpuscular Hemoglobin 27.3 pg Mean Corpuscular Hemoglobin Concent 30.1 g/dl Platelet Count 357 K/uL Mean Platelet Volume 8.9 fL Neutrophils (%) (Auto) 55.1 % Lymphocytes (%) (Auto) 31.8 % Monocytes (%) (Auto) 8.0 % Eosinophils (%) (Auto) 4.5 % Basophils (%) (Auto) 0.4 % Neutrophils # (Auto) 3.04 K/uL Lymphocytes # (Auto) 1.75 K/uL Monocytes # (Auto) 0.44 K/uL Eosinophils # (Auto) 0.25 K/uL Basophils # (Auto) 0.02 K/uL RDW Standard Deviation 53.5 fL RDW Coefficient of Variation 16.1 % Immature Granulocyte % (Auto) 0.2 % Immature Granulocyte # (Auto) 0.01 K/uL Sodium Level 141 mmol/L Potassium Level 3.7 mmol/L Chloride Level 108 mmol/L Carbon Dioxide Level 27 mmol/L Anion Gap 6.0 mmol/L Blood Urea Nitrogen 22 mg/dl Creatinine 1.50 mg/dl Est Creatinine Clear Calc Drug Dose 32.4 ml/min Estimated GFR () 38.0 Estimated GFR (Non- 32.8 BUN/Creatinine Ratio 14.5 Random Glucose 116 mg/dl Calcium Level 9.9 mg/dl Triglycerides Level 121 mg/dl Cholesterol Level 196 mg/dl HDL Cholesterol 63 mg/dl LDL Cholesterol, Calculated 109 mg/dl VLDL Cholesterol, Calculated 24 mg/dl Cholesterol/HDL Ratio 3.1 Assessment & Plan 81 year old F currently resident of [facility] and visiting in [place] when having new onset slurred speech that was witnessed by daughter Georgiana Thomason [phone] in the car with daughter reporting the episode lasted for around 30 minutes and resolved before patient arrived to the emergency room. History of DM, HTN, Chronic Iron Deficiency Anemia, Colonic Polyp and as per daughter, irregular heartbeat. ACUTE CVA- LEFT FRONTAL LOBE - risk factors: DM, HTN, possible history of a fib - repeat CT head: no acute CVA, old lacunar infarcts, chronic small vessel ischemic changes - telestroke conference with [facility] - Dr. Edwards performed due to mild symptoms- dysarthria and facial droop in the setting of Anemia secondary to possible GI bleed, requiring 2 units pRBC transfusion, TPA NOT recommended - Dr. Edwards recommends CONTINUE aspirin and ADD plavix for now and closely watch for signs of GI bleed Brain MRI IMPRESSION: 1. Small focus of acute ischemia in the subcortical white matter of the posterior left frontal region. This likely represents an acute lacunar infarct versus, less likely, embolic infarct. 2. Multiple old lacunar infarcts and extensive chronic small vessel ischemic change. Brain MRA IMPRESSION: Mild to moderate multifocal narrowing within the bilateral loan documents closer. Otherwise, no significant stenosis, occlusion, or aneurysm within the [place]. Echo: -- Conclusions -- * Ejection Fraction = 65-70%. * There is mild concentric left ventricular hypertrophy. * Injection of contrast documented no interatrial shunt. * There is moderate mitral annular calcification. - keep BP systolic 150-170, PRN Labetalol for systolic BP > 170 (hold Amlodipine and Lisinopril/HCTZ for now) - Dr. Lynn consulted -- continue Aspirin, Plavix for at least 3 months, then transition to one antiplatelet agent continue Atorvastatin resume Amlodipine, increase to 7.5mg po daily for now hold Lisinopril/HCTZ may need outpatient cardiac monitoring to r/o underlying A fib PT recommends to continue PT as outpatient POSSIBLE GI BLEED - evidenced by +rectal exam and anemia treated with PRBC's, GI consult, and IV Famotidine - has history of chronic iron deficiency anemia per daughter (records being obtained from PCP in [place]) - positive guaiac in the ER - s/p 2 units pRBC, Hg improved from 6.7 to 9.7 Famotidine IV BID for now (per neuro, no protonix while on plavix) GI consulted, no interventions at this time -- Iron level 25 -- no melena/hematochezia Hg remains stable at 9 after 2 units PRBC transfusion Famotidine PO on discharge, patient declines PO Iron due to constipation avoid NSAIDs ff up with PCP in [place] for further work up Possible Acute blood loss anemia, Iron Deficiency - in setting of suspected GI bleed - treated with 2 units of PRBC's management as noted above 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 - resume usual medications HTN - management of BP as noted in #1 ACUTE RENAL FAILURE ON CKD - crea 1.5 gentle IV fluids given records from PCP being obtained to confirm CKD - hold Lisinopril and HCTZ for now advised to increase po fluid intake - monitor crea as outpatient DVT prophylaxis SCDs ambulation encouraged Full code per daughter Disposition d/c home today ff up with PCP in 3-5 days Current Inpatient Medications: Current Inpatient Medications Medications (Trade) Dose Ordered Sig/Ariella Route Start Time Stop Time Status Last Admin Dose Admin Glucose (Glucose 40% Gel) 15-30 GRAMS 15 GRAMS... UD PRN PO 01/09/17 15:15 02/08/17 15:14 Glucose (Glucose Chew Tab) 4-8 Tablets 4 Tabl... UD PRN PO 01/09/17 15:15 02/08/17 15:14 Dextrose (Dextrose 50% 50ML Syringe) 25-50ML OF 50% DW IV FOR... UD PRN IV 01/09/17 15:15 02/08/17 15:14 Glucagon (Glucagon Inj) 1 mg UD PRN SQ 01/09/17 15:15 02/08/17 15:14 Insulin Aspart (novoLOG ASPART) SLIDING SCALE If C... ACHS SC 01/09/17 21:00 02/08/17 20:59 Famotidine 20 mg/ Dextrose 102 ml @ 200 mls/hr Q12H IV 01/10/17 10:00 02/09/17 09:59 01/11/17 10:12 200 MLS/HR Labetalol HCl (Normodyne IV) 10 mg Q6H PRN IV 01/10/17 08:45 02/09/17 08:44 Clopidogrel Bisulfate (plAVix TAB) 75 mg QAM PO 01/11/17 09:00 02/10/17 08:59 01/11/17 07:53 75 MG Aspirin (Ecotrin Tab) 81 mg QAM PO 01/10/17 09:00 02/09/17 08:59 Future hold 01/11/17 07:52 81 MG Atorvastatin Calcium (Lipitor Tab) 40 mg QAM PO 01/10/17 09:00 02/09/17 08:59 Future hold 01/11/17 07:52 40 MG Miscellaneous Information (Pharmacist Discharge Med Rec Consult) 1 ea UD PRN N/A 01/10/17 08:45 02/09/17 08:44 Amlodipine Besylate (Norvasc Tab) 5 mg QAM PO 01/12/17 09:00 02/11/17 08:59 Sodium Chloride 1,000 ml @ 75 mls/hr [id number] IV 01/11/17 10:00 02/10/17 09:59 01/11/17 10:12 60 MLS/HR Ferrous Sulfate (Feosol Tab) 325 mg TIDM PO 01/11/17 11:30 02/10/17 11:29
[2017-01-11] MEDS ORDERED: FERROUS SULFATE 325 MG TAB PO SCH (11:30)
[2017-01-11 12:00] VITALS: BP 129/79; PULSE 81; TEMP 36.7; O2SAT 97; O2SAT 98
[2017-01-11 15:45] VITALS: BP 158/85; PULSE 79; TEMP 36.5; O2SAT 96
[2017-01-11 16:00] VITALS: O2SAT 97
[2017-01-11 16:40] LABS: BUN/CREATININE RATIO 16.7 (10-20); CALCIUM 9.6 mg/dl (8.5-10.1); CREATININE 1.5 mg/dl (0.60-1.20); POTASSIUM 4.1 mmol/L (3.5-5.1)
--- NOTE | 2017-01-11 16:47 | PROGRESS NOTE ---
DATE: 01/11/2017 SUBJECTIVE: Desiree looks fairly stable to a little better today. She has had no worsening of her dysarthria, right facial weakness and clumsiness of the right hand and the fact that some of this is improved, according to her and I believe her daughter. Plans are to try to get her back to [place] where she resides with her son on Sunday, she is well enough to ride in the car if she is not going to go by airplane and she will have drivers. Plans are also get her back to her place of residence today on a combination of aspirin and Plavix and frankly I do not see any reason why we could not do so as a workup for causes of this stroke has yielded only localized small vessel intracranial disease without any cardiogenic source of emboli or large vessel stenotic lesions. Her symptoms may fluctuate from moment to moment because of the surrounding edema but unless she has a dramatic decline I certainly do not see any reason to keep her in the hospital, she has been stable now for 36 hours. I have let the nurses know that in my opinion she could go home on the aspirin and Plavix. She will have to be followed by her primary care physician in [place]. The status of her possible GI bleed monitored carefully on the dual antiplatelet therapy and the duration of there should be no more than 3 months before reverting to a single antiplatelet drug, either aspirin or Plavix depending on her primary care physician's comfort with either drug. IRIS
[2017-01-11] MEDS ORDERED: PLV75 PO (17:26)
[2017-01-11] MEDS ORDERED: ASPEC81 PO (17:26)
[2017-01-11] MEDS ORDERED: AMLO-110 PO (17:26)
[2017-01-11] MEDS ORDERED: FAMO40TA6 PO (17:26)
[2017-01-11] MEDS ORDERED: LPT40 PO (17:26)
--- NOTE | 2017-01-11 17:35 | Discharge Instructions ---
Discharge Instructions Date of Service Jan 11, 2017. Admission Reason for Admission: Anemia, Slurred Speech Discharge Discharge Diagnosis / Problem: ACUTE STROKE Discharge Goals Goal(s): Diagnostic testing, Therapeutic intervention Activity Recommendations Activity Limitations: as noted below (NO HEAXY EXERTION UNTIL RE-EVALUATED BY PRIMARY CARE PHYSICIAN) Lifting Limitations: until after follow-up appointment Exercise/Sports Limitations: until after follow-up appointment Driving or Machine Use: NO DRIVING UNTIL RE-EVALUATED BY PRIMARY CARE PHYSICIAN . Instructions / Follow-Up Instructions / Follow-Up PLEASE REVIEW YOUR NEW MEDICATION LIST AND FOLLOW INSTRUCTIONS CAREFULLY. CALL 911 IMMEDIATELY IF WITH SIGNS OF STROKE. (PLEASE SEE BELOW). CALL PRIMARY CARE PHYSICIAN OR RETURN TO ER IMMEDIATELY IF WITH BLOOD IN THE STOOLS OR BLACK STOOLS, WEAKNESS, DIZZINESS, SHORTNESS OF BREATH. FOLLOW UP WITH PRIMARY ARE PHYSICIAN IN 1 WEEK. Risk Factors for Stroke: You can reduce your chances of stroke by working with your medical provider to adopt a healthy lifestyle. Some specific ways to lower your chance of stroke are: * If you are a smoker, now is the time to stop smoking cigarettes * If you are diabetic, improve the control of your blood sugars * Avoid excessive amounts of alcohol * Control high blood pressure * Lose weight if you are overweight * Be sure to lead an active lifestyle * Eat a healthy diet low in salt, cholesterol and fat You should know about other risk factors for stroke that you are unable to control. These include: * Age 55 years or older * Male gender * Certain racial groups: , or / * Family History of Stroke, Mini stroke or Heart Attack * Sickle Cell Disease Follow Up: It is important for you to keep your follow up appointments with your medical provider. Current Hospital Diet Patient's current hospital diet: AHA Diet (Heart Healthy), Diabetes Type 2 Diet Discharge Diet Recommended Diet: AHA Diet (Heart Healthy), Diabetes Type 2 Diet Procedures Procedures Performed: BRAIN MRI AND MRA, ECHOCARDIOGRAM, CAROTID ARTERY ULTRASOUND Pending Studies Studies pending at discharge: yes List of pending studies: REPEAT BLOOD WORK C/O PRIMARY CARE PHYSICIAN Laboratory Results Hemoglobin A1c Test 01/10/17 08:22 Range/Units Estimated Average Glucose 140 mg/dl Hemoglobin A1c 6.5 H 4.5-5.6 % Lipid Panel Test 01/11/17 06:42 Range/Units Triglycerides Level 121 0-150 mg/dl Cholesterol Level 196 0-200 mg/dl HDL Cholesterol 63 mg/dl Cholesterol/HDL Ratio 3.1 LDL Cholesterol, Calculated 109 mg/dl Medical Emergencies . Who to Call and When: Medical Emergencies: Call 911 immediately if you experience any of the following warning signs and symptoms of Stroke: * Sudden numbness or weakness of the face, arm or leg, especially on one side of the body * Sudden confusion, trouble speaking or understanding * Sudden trouble seeing in one or both eyes * Sudden trouble walking, dizziness, loss of balance or coordination * Sudden severe headache with no cause Do not delay calling 911 if you experience any warning signs or symptoms of a stroke. Delay in seeking medical attention may affect what treatments can be given to you. . Non-Emergent Contact Non-Emergency issues call your: Primary Care Provider Call Non-Emergent contact if: you have a fever, you have any medication questions . . "Provider Documentation" section prepared by Redd Bautista. . Stroke Core Measures Reason no t-PA for Stroke: Treatment not indicated Reason no antithrom by day 2: Treatment provided - N/A Reason no antithrom at D/C: Treatment provided - N/A Reason no statin at D/C: Treatment provided - N/A Reason no anticoag w/a fib: Treatment not indicated VTE Core Measure Inpt VTE Proph given/why not?: SCD's
[2017-01-11 17:39] VITALS: BP 158/85; PULSE 79; TEMP 36.5; O2SAT 97
[2017-01-11] MEDS ORDERED: ATORVASTATIN 40 MG TAB PO SCH (18:45)
[2017-01-12] MEDS ORDERED: AMLODIPINE BESYLATE 5 MG TAB PO SCH (09:00)
--- NOTE | 2017-01-12 20:40 | Discharge Summary ---
Discharge Summary Date of Service Jan 12, 2017. Discharge Summary Admission Date: Jan 09, 2017 at 14:53 Discharge Date: Jan 11, 2017 Discharge Disposition: Home Principal Diagnosis: ACUTE CVA- LEFT FRONTAL LOBE Secondary Diagnoses/Problems: Please refer to hospital course below. Procedures: BRAIN WITHOUT CONTRAST CLINICAL HISTORY: 81 years-old Female presenting with Stroke, anemia, slurred speech. TECHNIQUE: Multisequence, multiplanar MR imaging of the brain was performed without the use of intravenous contrast. IV contrast: None. COMPARISON: Noncontrast CT head performed the previous day. FINDINGS: Small focus of restricted diffusion in the subcortical white matter of the posterior left frontal region. Extensive periventricular and white matter T2/FLAIR hyperintensity nonspecific but likely chronic small vessel ischemic change. Old lacunar infarcts noted in the right basal ganglia and thalami. Proportional ventricular and sulcal prominence likely age-related parenchymal volume loss. No mass effect or midline shift. No hemorrhage. No extra-axial fluid collection. T2 skull base flow voids preserved. Bone marrow signal intensity within the calvarium within normal limits. IMPRESSION: 1. Small focus of acute ischemia in the subcortical white matter of the posterior left frontal region. This likely represents an acute lacunar infarct versus, less likely, embolic infarct. 2. Multiple old lacunar infarcts and extensive chronic small vessel ischemic change. Brain MRA HISTORY: Stroke - Attention to [place] TECHNIQUE: 3-D [id number] MRA of the brain was performed without contrast. COMPARISON STUDY: None. FINDINGS: Visualized intracranial internal carotid arteries, distal vertebral arteries, and basilar artery are widely patent. There is no significant stenosis, occlusion, or aneurysm seen within the bilateral ACAs and MCAs. Mild to moderate multifocal narrowing within the bilateral shoe repairer. IMPRESSION: Mild to moderate multifocal narrowing within the bilateral shoe repairer. Otherwise, no significant stenosis, occlusion, or aneurysm within the [place]. CAROTID ARTERY ULTRASOUND CLINICAL HISTORY: Slurred speech. COMPARISON STUDY: None. TECHNIQUE: Real-time, grayscale, and color Doppler sonography of the carotid and vertebral arteries was performed. Images were viewed in the transverse and longitudinal planes. FINDINGS: There is mild to moderate atherosclerotic plaque. Velocity measurements are listed below. COMMON CAROTID PEAK SYSTOLIC VELOCITY (CM/S): RIGHT 118 LEFT 111 ICA PEAK SYSTOLIC VELOCITY (CM/S): RIGHT 87 LEFT 109 The systolic ratios between the internal to common carotid arteries are normal. Antegrade flow is seen in the vertebral arteries. The external carotid arteries are patent. Blood pressure in the right arm measured 170/73. Blood pressure in the left arm measured 161/77. IMPRESSION: 1. No evidence of a hemodynamically significant stenosis. 2. Elevated blood pressure, as above. ECHO: * -- Conclusions -- * Ejection Fraction = 65-70%. * There is mild concentric left ventricular hypertrophy. * Injection of contrast documented no interatrial shunt. There is moderate mitral annular calcification Consultations: Neurology Dr. Lynn Pending Studies/Follow-Up: Please refer to hospital course below. Medication Reconciliation New Medications: Famotidine (Pepcid) 40 Mg Tab 1 TAB PO DAILY for 30 Days, #30 TAB 1 Refill Aspirin (Aspirin EC Low Dose) 81 Mg Ectab 81 MG PO QAM for 30 Days, #30 TABS 2 Refills Atorvastatin (Atorvastatin Calcium) 40 Mg Tab 40 MG PO QAM for 30 Days, #30 TAB 2 Refills Clopidogrel Bisulfate (Clopidogrel) 75 Mg Tab 75 MG PO QAM for 30 Days, #30 TAB 2 Refills Changed Medications: Amlodipine (Norvasc) 5 Mg Tab 7.5 MG PO DAILY for 30 Days, #45 TAB 2 Refills (Changed from: 5 MG; Refills: ) Continued Medications: Ergocalciferol (Vitamin D 96750 Unit) 50,000 Unit Cap 77135 UNIT PO WK, CAP Pioglitazone Hcl (Pioglitazone Hcl) 45 Mg Tab 45 MG PO DAILY Sitagliptin Phosphate (Januvia) 100 Mg Tab 100 MG PO DAILY, TAB Discontinued Medications: Lisinopril/Hctz (Zestoretic 20MG/12.5MG) Tab 1 TAB PO DAILY, TAB Admission Information HPI (per Admitting provider): 81 year old F currently resident of [facility] and visiting in [place] when having new onset slurred speech that was witnessed by daughter Georgiana Thomason [phone] in the car with daughter reporting the episode lasted for around 30 minutes and resolved before patient arrived to the emergency room. Patient has PMH of HTN on oral antihypertensives at home and oral antihyperglycemic medications as prescribed by her doctor in [place], Dr. Canchola, , . However patient did not take her medications before arriving to the ED and was found to have blood pressure systolic above 180. Patient reports that typically she is consistent with taking her medications, but sometimes her systolic blood pressure can be over 200. She reports good diabetes control and reports her last known HbA1c to be less than 6. Patient only had a small snack in the AM before episode of slurred speech. Her glucose measured in the ED was 161 and not hypoglycemic. Head CT did not show evidence of new infarct. Patient is not likely able to get MRI of head because of history of metal hip. As per ED physician, Dr. Calderon, there guaiac positive blood on rectal exam. Patient reports that she is aware of history of anemia and has in the past been on iron supplements but not recently with last colonoscopy positive for a polyp but was unremarkable test and that she will be due for colonoscopy soon. Patient does not report of seeing blood in stool and reports weight gain. Other pertinent lab findings include creatinine of 1.8 with GFR estimated below 30 however it is unclear whether this is acute or chronic. Physical Exam (per Admitting): General Appearance: no apparent distress, + obese Head: normocephalic, atraumatic Eyes: normal inspection, PERRL, EOMI, sclerae normal ENT: pharynx normal Neck: supple, thyroid normal, no JVD, no carotid bruits, trachea midline Respiratory/Chest: chest non-tender, lungs clear, normal breath sounds, no respiratory distress, no accessory muscle use Cardiovascular: no JVD, no murmur, + tachycardia (100 bpm) Abdomen/GI: normal bowel sounds, non tender, soft Back: normal inspection, no muscle spasm Extremities/Musculoskelatal: normal inspection, no calf tenderness, no pedal edema, normal range of motion Neurologic/Psych: no motor/sensory deficits, alert, oriented x 3 Hospital Course 81 year old F currently resident of [facility] and visiting in [place] when having new onset slurred speech that was witnessed by daughter Georgiana Thomason [phone] in the car with daughter reporting the episode lasted for around 30 minutes and resolved before patient arrived to the emergency room. History of DM, HTN, Chronic Iron Deficiency Anemia, Colonic Polyp and as per daughter, irregular heartbeat. ACUTE CVA- LEFT FRONTAL LOBE - risk factors: DM, HTN, possible history of a fib - repeat CT head: no acute CVA, old lacunar infarcts, chronic small vessel ischemic changes - telestroke conference with [facility] - Dr. Edwards performed due to mild symptoms- dysarthria and facial droop in the setting of Anemia secondary to possible GI bleed, requiring 2 units pRBC transfusion, TPA NOT recommended - Dr. Edwards recommends CONTINUE aspirin and ADD plavix for now and closely watch for signs of GI bleed Brain MRI IMPRESSION: 1. Small focus of acute ischemia in the subcortical white matter of the posterior left frontal region. This likely represents an acute lacunar infarct versus, less likely, embolic infarct. 2. Multiple old lacunar infarcts and extensive chronic small vessel ischemic change. Brain MRA IMPRESSION: Mild to moderate multifocal narrowing within the bilateral shoe repairer. Otherwise, no significant stenosis, occlusion, or aneurysm within the [place]. Echo: -- Conclusions -- * Ejection Fraction = 65-70%. * There is mild concentric left ventricular hypertrophy. * Injection of contrast documented no interatrial shunt. * There is moderate mitral annular calcification. - keep BP systolic 150-170, PRN Labetalol for systolic BP > 170 (hold Amlodipine and Lisinopril/HCTZ for now) - Dr. Lynn consulted -- continue Aspirin, Plavix for at least 3 months, then transition to one antiplatelet agent continue Atorvastatin resume Amlodipine, increase to 7.5mg po daily for now hold Lisinopril/HCTZ may need outpatient cardiac monitoring to r/o underlying A fib PT recommends to continue PT as outpatient POSSIBLE GI BLEED - evidenced by +rectal exam and anemia treated with PRBC's, GI consult, and IV Famotidine - has history of chronic iron deficiency anemia per daughter (records being obtained from PCP in [place]) - positive guaiac in the ER - s/p 2 units pRBC, Hg improved from 6.7 to 9.7 Famotidine IV BID for now (per neuro, no protonix while on plavix) GI consulted, no interventions at this time -- Iron level 25 -- no melena/hematochezia Hg remains stable at 9 after 2 units PRBC transfusion Famotidine PO on discharge, patient declines PO Iron due to constipation avoid NSAIDs ff up with PCP in [place] for further work up Possible Acute blood loss anemia, Iron Deficiency - in setting of suspected GI bleed - transfused with 2 units of PRBC's management as noted above 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 Discharge Instructions Discharge Instructions Date of Service Jan 11, 2017. Admission Reason for Admission: Anemia, Slurred Speech Discharge Discharge Diagnosis / Problem: ACUTE STROKE Discharge Goals Goal(s): Diagnostic testing, Therapeutic intervention Activity Recommendations Activity Limitations: as noted below (NO HEAXY EXERTION UNTIL RE-EVALUATED BY PRIMARY CARE PHYSICIAN) Lifting Limitations: until after follow-up appointment Exercise/Sports Limitations: until after follow-up appointment Driving or Machine Use: NO DRIVING UNTIL RE-EVALUATED BY PRIMARY CARE PHYSICIAN . Instructions / Follow-Up Instructions / Follow-Up PLEASE REVIEW YOUR NEW MEDICATION LIST AND FOLLOW INSTRUCTIONS CAREFULLY. CALL 911 IMMEDIATELY IF WITH SIGNS OF STROKE. (PLEASE SEE BELOW). CALL PRIMARY CARE PHYSICIAN OR RETURN TO ER IMMEDIATELY IF WITH BLOOD IN THE STOOLS OR BLACK STOOLS, WEAKNESS, DIZZINESS, SHORTNESS OF BREATH. FOLLOW UP WITH PRIMARY ARE PHYSICIAN IN 1 WEEK. Risk Factors for Stroke: You can reduce your chances of stroke by working with your medical provider to adopt a healthy lifestyle. Some specific ways to lower your chance of stroke are: * If you are a smoker, now is the time to stop smoking cigarettes * If you are diabetic, improve the control of your blood sugars * Avoid excessive amounts of alcohol * Control high blood pressure * Lose weight if you are overweight * Be sure to lead an active lifestyle * Eat a healthy diet low in salt, cholesterol and fat You should know about other risk factors for stroke that you are unable to control. These include: * Age 55 years or older * Male gender * Certain racial groups: , or / * Family History of Stroke, Mini stroke or Heart Attack * Sickle Cell Disease Follow Up: It is important for you to keep your follow up appointments with your medical provider. Current Hospital Diet Patient's current hospital diet: AHA Diet (Heart Healthy), Diabetes Type 2 Diet Discharge Diet Recommended Diet: AHA Diet (Heart Healthy), Diabetes Type 2 Diet Procedures Procedures Performed: BRAIN MRI AND MRA, ECHOCARDIOGRAM, CAROTID ARTERY ULTRASOUND Pending Studies Studies pending at discharge: yes List of pending studies: REPEAT BLOOD WORK C/O PRIMARY CARE PHYSICIAN Laboratory Results Hemoglobin A1c Test 01/10/17 08:22 Range/Units Estimated Average Glucose 140 mg/dl Hemoglobin A1c 6.5 H 4.5-5.6 % Lipid Panel Test 01/11/17 06:42 Range/Units Triglycerides Level 121 0-150 mg/dl Cholesterol Level 196 0-200 mg/dl HDL Cholesterol 63 mg/dl Cholesterol/HDL Ratio 3.1 LDL Cholesterol, Calculated 109 mg/dl Medical Emergencies . Who to Call and When: Medical Emergencies: Call 911 immediately if you experience any of the following warning signs and symptoms of Stroke: * Sudden numbness or weakness of the face, arm or leg, especially on one side of the body * Sudden confusion, trouble speaking or understanding * Sudden trouble seeing in one or both eyes * Sudden trouble walking, dizziness, loss of balance or coordination * Sudden severe headache with no cause Do not delay calling 911 if you experience any warning signs or symptoms of a stroke. Delay in seeking medical attention may affect what treatments can be given to you. . Non-Emergent Contact Non-Emergency issues call your: Primary Care Provider Call Non-Emergent contact if: you have a fever, you have any medication questions . . "Provider Documentation" section prepared by Redd Bautista. . Stroke Core Measures Reason no t-PA for Stroke: Treatment not indicated Reason no antithrom by day 2: Treatment provided - N/A Reason no antithrom at D/C: Treatment provided - N/A Reason no statin at D/C: Treatment provided - N/A Reason no anticoag w/a fib: Treatment not indicated VTE Core Measure Inpt VTE Proph given/why not?: SCD's
== END 2017-01-11 18:42 | disposition home or self-care (01) | DRG 65 ==
LOC: C.EDB 11:13 → C.MED 14:53 → ENRESERV 15:18 → C.2T 01-10 09:53
PROVIDERS: ADMIT Hospitalist; ATTEND Internal Medicine
DX: I63.9 Cerebral infarction, unspecified (principal); K92.2 Gastrointestinal hemorrhage, unspecified; D62 Acute posthemorrhagic anemia; N17.9 Acute kidney failure, unspecified; R47.1 Dysarthria and anarthria; R29.810 Facial weakness; R29.898 Other symptoms and signs involving the musculoskeletal system; R29.707 NIHSS score 7; E11.9 Type 2 diabetes mellitus without complications; I12.9 Hypertensive chronic kidney disease with stage 1 through stage 4 chronic kidney disease, or unspecified chronic kidney disease; N18.9 Chronic kidney disease, unspecified; E66.9 Obesity, unspecified; Z79.899 Other long term (current) drug therapy; Z79.84 Long term (current) use of oral hypoglycemic drugs; Z68.32 Body mass index [BMI] 32.0-32.9, adult; Z82.3 Family history of stroke